=== PATIENT | female | born 1940 | race Caucasian/White ===

== ENCOUNTER 2016-04-04 14:43 | Emergency (ER) | payer OTHER ==
[~2016-04-04] VITALS: Ht 162.6 cm; Wt 52.2 kg
[~2016-04-04 14:43] MED LIST: ALEN70TA5 PO; ASPI-482 PO; ATEN50TA PO; ATOR40TA59 PO; CEPH-264 PO; ERGO500012 PO; GABA-585 PO; HYDR-2666 PO; HYDR-2819 PO; NAPR500T8 PO; POTA10TA10 PO; TRIA1CAP3 PO
[2016-04-04] MEDS ORDERED: ONDANSETRON ODT 4 MG TAB.RAPDIS PO ONE (16:00)
[2016-04-04] MEDS ORDERED: HYDROMORPHONE 2 MG/ML VIAL. IM ONE (16:00)
[2016-04-04] MEDS ORDERED: HYDR-2678 PO (17:21)
--- NOTE | 2016-04-04 17:21 | PHYS DOC ---
Past Medical History Past Medical History: Arthritis, High Cholesterol, Hypertension Additional Past Medical Histor: prolapsed uterus, alzheimers, chronic back pain Past Surgical History: Other Additional Past Surgical Histo: lumbar spinal surgery Alcohol Use: None Drug Use: None Adult General Chief Complaint Chief Complaint: HIP PAIN HPI HPI Patient is a 75 year old female who presents here today secondary to pain to her hips. Patient reports that she has chronic pain. Patient reports that she takes oxycodone but she ran out. Patient denies any trauma or falls. Patient denies any fevers shaking chills nausea vomiting diarrhea dysuria frequency urgency chest pain shortness of breath or abdominal pain. Patient does have a history of hypertension. Patient denies any diabetes liver kidney or lung problems. Patient has had no prior surgeries. Patient does not smoke drink or do drugs. Patient reports that she has chronic pain to her hips which he normally takes medicines for but she hasn't had any. Patient reports she does not have an appointment coming up with her primary care physician that she will try to make one for this week. The patient's exam in the ED was significant for tenderness to palpation to both hips. Patient has full range of motion. There is no deformity. The remainder of the patient's exam was unremarkable. Patient was given a shot of Dilaudid IM in the ED with significant improvement in her pain. Upon reevaluation the patient reports that she feels much improved. Patient will be discharged home with pain medicines was instructed to follow-up with her primary care physician for assistance with her discomfort. Review of Systems Review of Systems Constitutional: Denies fever or chills [] Eyes: Denies change in visual acuity, redness, or eye pain [] All other review of systems are negative except as documented in the history of present illness portion. Current Medications Current Medications Current Medications Medications (Trade) Dose Ordered Sig/Ren Start Time Stop Time Status Last Admin Dose Admin Hydromorphone HCl (Dilaudid) 0.5 mg 1X ONCE 04/04/16 16:00 04/04/16 16:01 DC 04/04/16 16:12 0.5 MG Ondansetron HCl (Zofran Odt) 4 mg 1X ONCE 04/04/16 16:00 04/04/16 16:01 DC 04/04/16 16:12 4 MG Allergies Allergies Allergies Coded Allergies Type Severity Reaction Last Updated Verified No Known Drug Allergies 09/17/14 No Physical Exam Physical Exam Constitutional: Well developed, well nourished, no acute distress, non-toxic appearance. [] HENT: Normocephalic, atraumatic, bilateral external ears normal, Eyes: PERRLA, EOMI, Neck: Normal range of motion, no tenderness, Cardiovascular:Heart rate regular rhythm Lungs & Thorax: Bilateral breath sounds clear to auscultation [] Abdomen: Bowel sounds normal, soft, no tenderness, no masses, no pulsatile masses. [] Skin: Warm, dry, no erythema, no rash. [] Back: No tenderness, no CVA tenderness. [] Extremities: See above. Neurologic: Alert and oriented X 3, normal motor function, Psychologic: Affect normal, judgement normal, mood normal. [] Current Patient Data Vital Signs Vital Signs Date Time Temp Pulse Resp B/P Pulse Ox O2 Delivery O2 Flow Rate FiO2 04/04/16 18:45 84 20 133/80 96 Room Air 04/04/16 16:15 97.6 97.6 EKG EKG [] Radiology/Procedures Radiology/Procedures [] Course & Med Decision Making Course & Med Decision Making Pertinent Labs and Imaging studies reviewed. (See chart for details) [] Dragon Disclaimer Dragon Disclaimer This electronic medical record was generated, in whole or in part, using a voice recognition dictation system. Departure Departure Impression: Primary Impression: Hip pain Disposition: 01 HOME, SELF-CARE Condition: IMPROVED Referrals: LUZMA MELO MD (PCP) Patient Instructions: Arthralgia, [id number] Additional Instructions: Follow up with your doctor this week. Scripts Hydrocodone/Acetaminophen (Lortab 5-325 mg Tablet)1 Each Tablet1 Tab PO PRN Q6HRS PRN PAIN #20 TAB Prov:DANIEL LIMA MD 04/04/16 DANIEL LIMA MD Apr 04, 2016 17:21
[2016-04-04 18:45] VITALS: BP 133/80
== END 2016-04-04 19:04 | disposition home or self-care (01) ==
LOC: ER 15:26
DX: G89.29 Other chronic pain (principal); M25.551 Pain in right hip; M25.552 Pain in left hip; G30.9 Alzheimer's disease, unspecified; E78.00 Pure hypercholesterolemia, unspecified; F02.80 Dementia in other diseases classified elsewhere, unspecified severity, without behavioral disturbance, psychotic disturbance, mood disturbance, and anxiety; M19.90 Unspecified osteoarthritis, unspecified site; I10 Essential (primary) hypertension
CPT/HCPCS: 96372; 99283; J1170; Q0162

== ENCOUNTER 2016-04-05 11:55 | Emergency (ER) | payer OTHER ==
[~2016-04-05] VITALS: Ht 134.6 cm; Wt 47.6 kg
[~2016-04-05 11:55] MED LIST changes: +HYDR-2678 PO
--- NOTE | 2016-04-05 14:58 | RAD ---
Portable pelvis, 04/05/2016: History: Hip pain No fracture or destructive bony lesion is seen. There is mild narrowing of both hip joints with mild marginal spurring. Severe multilevel degenerative change is evident in the lower lumbar spine. IMPRESSION: 1. Mild degenerative change at both hip joints. 2. Severe degenerative changes in the lumbar spine.
[2016-04-05 15:44] LABS: BILIRUBIN,URINE NEGATIVE (NEG); GLUCOSE,URINE NEGATIVE (NEG); NITRITE,URINE NEGATIVE (NEG); PH,URINE 6.5; PROTEIN,URINE NEGATIVE (NEG-TRACE); UROBILINOGEN,URINE 0.2 mg/dL (0.2 mg/dL)
[2016-04-05] MEDS ORDERED: KETOROLAC TROMETHAMINE 60 MG/2 ML SYRINGE. IM ONE (15:45)
[2016-04-05 16:07] LABS: BACTERIA,URINE FEW /HPF (0-FEW); RBC,URINE 0 /HPF (0-2); SQUAMOUS EPITHELIAL CELL,UR FEW /LPF
--- NOTE | 2016-04-05 16:11 | PHYS DOC ---
Past Medical History Past Medical History: Arthritis, High Cholesterol, Hypertension Additional Past Medical Histor: prolapsed uterus, alzheimers, chronic back pain Past Surgical History: Other Additional Past Surgical Histo: lumbar spinal surgery Alcohol Use: None Drug Use: None Adult General Chief Complaint Chief Complaint: BACK PAIN - NO INJURY HPI HPI Patient is a 75 year old female who presents with sons for evaluation of acute on chronic back and hip pains. States has no pain at rest, but has significant pain with bending at hips or back or walking. Tried taking hydrocodone from yesterday ED visit, but is not controlling pain. Son also states she has 1 month of decreased urination and is concerned she has a UTI. She otherwise denies injury, fall, f/c, n/v, abd pain, dysuria, hematuria, constipation, diarrhea, numbness, tingling, weakness, bowel or bladder dysfunction, or saddle anesthesia. Review of Systems Review of Systems Constitutional: Denies fever or chills [] Eyes: Denies change in visual acuity, redness, or eye pain [] HENT: Denies nasal congestion or sore throat [] Respiratory: Denies cough or shortness of breath [] Cardiovascular: No additional information not addressed in HPI [] GI: Denies abdominal pain, nausea, vomiting, bloody stools or diarrhea [] : Denies dysuria or hematuria [] Musculoskeletal: Has back pain and joint pain [] Integument: Denies rash or skin lesions [] Neurologic: Denies headache, focal weakness or sensory changes [] Endocrine: Denies polyuria or polydipsia [] Current Medications Current Medications Current Medications Medications (Trade) Dose Ordered Sig/[facility] Start Time Stop Time Status Last Admin Dose Admin Ketorolac Tromethamine (Toradol Im) 15 mg 1X ONCE 04/05/16 15:45 04/05/16 15:48 DC 04/05/16 16:13 15 MG Allergies Allergies Allergies Coded Allergies Type Severity Reaction Last Updated Verified No Known Drug Allergies 09/17/14 No Physical Exam Physical Exam Constitutional: Well developed, well nourished, no acute distress, non-toxic appearance. [] HENT: Normocephalic, atraumatic, bilateral external ears normal, oropharynx moist, nose normal. [] Eyes: PERRLA, EOMI. [] Neck: Normal range of motion, supple. [] Cardiovascular:Heart rate regular rhythm [] Lungs & Thorax: Bilateral breath sounds clear to auscultation [] Abdomen: Bowel sounds normal, soft, no tenderness. [] Skin: Warm, dry, no erythema, no rash. [] Back: No midline spinal tenderness, no CVA tenderness. No visual or palpable abnormality. Has mild tenderness to bilateral lumbar paraspinal areas [] Extremities: Lower extremities with no obvious deformity or discoloration, no tenderness, maintains full ROM of hips/knees/ankles/toes, has pain with bilateral hip ROM, normal strength, sensation intact to light touch, equal dp pulses [] Neurologic: Alert and oriented to self and situation, normal motor function, normal sensory function, no focal deficits noted. [] Psychologic: Affect normal, judgement normal, mood normal. [] Current Patient Data Vital Signs Vital Signs Date Time Temp Pulse Resp B/P Pulse Ox O2 Delivery O2 Flow Rate FiO2 04/05/16 16:35 92 20 129/87 96 Room Air 04/05/16 13:23 97.0 97.0 Lab Values Laboratory Tests Test 04/05/16 13:05 Urine Collection Type Unknown Urine Color Yellow Urine Clarity Clear Urine pH 6.5 Urine Specific [place] 1.020 Urine Protein Negativemg/dL (NEG-TRACE) Urine Glucose (UA) Negativemg/dL (NEG) Urine Ketones (Stick) Negativemg/dL (NEG) Urine Blood Negative (NEG) Urine Nitrite Negative (NEG) Urine Bilirubin Negative (NEG) Urine Urobilinogen Dipstick 0.2mg/dL (0.2 mg/dL) Urine Leukocyte Esterase Small (NEG) Urine RBC 0/HPF (0-2) Urine WBC 1-4/HPF (0-4) Urine Squamous Epithelial Cells Few/LPF Urine Bacteria Few/HPF (0-FEW) Urine Hyaline Casts Few/HPF Urine Mucus Mod/LPF Radiology/Procedures Radiology/Procedures XR pelvis IMPRESSION: 1. Mild degenerative change at both hip joints. 2. Severe degenerative changes in the lumbar spine. DICTATED and SIGNED BY: LEXY MORRIS MD DATE: 04/05/16 9643 Course & Med Decision Making Course & Med Decision Making Pertinent Labs and Imaging studies reviewed. (See chart for details) Urine without significant evidence of infection so will await cultures. XR as above. While in ED, she has few large bowel movements and began to feel better. Discussed results with patient and family and they are comfortable going home. Encouraged close follow up with PCP. Return precautions given. They understand and agree with plan. Dragon Disclaimer Dragon Disclaimer This electronic medical record was generated, in whole or in part, using a voice recognition dictation system. Departure Departure Impression: Primary Impression: Acute exacerbation of chronic low back pain Disposition: HOME, SELF-CARE Condition: STABLE Referrals: LUZMA MELO MD (PCP) Patient Instructions: Back Pain, Adult, [id number] Additional Instructions: Follow-up with your primary care doctor for further pain management. Return for any concerns. Kerri CLIFFORD MD Apr 05, 2016 16:11
[2016-04-05 16:35] VITALS: BP 129/87
== END 2016-04-05 16:45 | disposition home or self-care (01) ==
LOC: ER 11:55
DX: G89.29 Other chronic pain (principal); M54.5 Low back pain; E78.00 Pure hypercholesterolemia, unspecified; I10 Essential (primary) hypertension; M19.90 Unspecified osteoarthritis, unspecified site
CPT/HCPCS: 72170; 81001; 96372; 99285; J1885; 87086

== ENCOUNTER → 2016-04-12 | Outpatient (CLI) | payer MEDICARE, OTHER ==
[2016-04-05 16:35] VITALS: BP 129/87
--- NOTE | 2016-04-12 09:43 | RAD ---
Exam performed: Pelvic sonogram. History: Pelvic pain. Date of service: 04/12/16. Comparison: None available Technique: Transabdominal. Findings: The uterus and ovaries are not seen and are surgically absent as per the given history. No pelvic mass is identified. No free fluid. Impression: 1. Nonvisualized uterus and ovaries, Status post total hysterectomy. 2. Otherwise unremarkable exam
--- NOTE | 2016-04-12 12:17 | RAD ---
PROCEDURE MRI lumbar spine without contrast. HISTORY Chronic low back pain with bilateral leg radiculopathy, previous lumbar surgery TECHNIQUE Sagittal and axial T1 and T2 and sagittal STIR images were acquired of the lumbar spine. Contrast: None COMPARISON None FINDINGS There is fluid within the L3-4 and L2-3 intervertebral disc spaces. There is inferior height loss of L2 and superiorly of L3, also generalized height loss greater superiorly of L4. There are also large Schmorl's nodes at L3-4. There is advanced narrowing of the L2-3 through L5-S1 intervertebral disc spaces. There is grade 1 anterior spondylolisthesis at L2-3, minimal posterior subluxation L4 relative to L5, negligible posterior subluxation L3 relative to L4. There is reversal of the lordotic curvature centered about L3. There is amorphous edema of the L4 and L3 vertebral bodies and also minimally inferiorly of L2. Conus terminates normally T12-L1. There is mild to moderate levoscoliosis centered about L2. Not fully included, there is septated cyst of the left pelvis, may arise from the adnexa up to at least 3 centimeters in size. T12-L1: Spinal canal and neural foramina are adequate. L1-2: There is mild to moderate buckling of the ligamentum flavum. Neural foramina are adequate. There is very mild posterior narrowing of the far right lateral recess. L2-3: There is partial uncovering of the posterior aspect of the disc due to spondylolisthesis with superimposed broad bulge/protrusion. There is right laminectomy defect. There is facet hypertrophic change. There is fairly severe right and moderate to severe left neural foramina compromise. There is moderate left and mild right lateral recess stenosis, mild narrowing of the central canal. L3-4: There is a broad posterior disc osteophyte complex relatively greater in the left lateral recess, possible superimposed shallow bulge/protrusion. There are laminectomy defects. There is moderate left lateral recess stenosis. There is moderate left and moderate to severe right neural foramina compromise. L4-5: There is left laminectomy defect. There is broad posterior disc osteophyte complex, superimposed on the posteriorly subluxed L4 vertebral body margin. There is mild left lateral recess stenosis. There is moderate to severe left and moderate right neural foramina compromise. L5-S1: There is left laminectomy defect. There is mild buckling of the ligamentum flavum on the right. There is fairly severe narrowing of the left neural foramen greater distally with contact exiting left L5 nerve root by disc osteophyte complex. There is minimal narrowing of the right neural foramen. IMPRESSION 1. There is advanced narrowing of the L2-3 through L5-S1 intervertebral disc spaces. There is intradiscal fluid at L3-4 and L2-3, also some amorphous edema of the vertebral bodies at L2, L3, L4 with variable height loss of these vertebral bodies. Although sequela of infectious spondylitis is possible, findings are more likely to be more chronic assuming no clinical suspicion for acute infection, no significant paraspinous edema. There are no previous exams at this facility for comparison. 2. There have been multilevel laminectomies L2-3 to L5-S1 as stated. There is some variable lateral recess stenosis as stated greatest on the left at L3-L4 and left greater than right at L2-3. 3. There is multilevel lumbar neural foramina compromise as stated including more significant narrowing on the left at L5-S1, left greater than right at L4-5, right greater than left at L3-4, and bilaterally at L2-3. 4. There is lumbar levoscoliosis. There is mild abnormal AP alignment as stated. 5. Not fully included, there is likely septated cyst of the left pelvis which may arise from the adnexa, better evaluated with ultrasound. Electronically signed by: Jay Andrews MD (Apr 12, 2016 12:15:55)
== END | disposition home or self-care (01) ==
LOC: US 07:02
PROVIDERS: ATTEND Physician Assistant Medical
DX: M54.16 Radiculopathy, lumbar region (principal); G89.29 Other chronic pain; R19.00 Intra-abdominal and pelvic swelling, mass and lump, unspecified site
CPT/HCPCS: 72148; 76856

== ENCOUNTER → 2016-09-06 | Outpatient (CLI) | payer MEDICARE, OTHER ==
[~2016-09-06] MED LIST changes: -ERGO500012 PO; +ERGO500027 PO; -HYDR-2666 PO; +HYDR-2758 PO; -POTA10TA10 PO; +POTA10TA12 PO
[2016-09-06 11:49] LABS: BASO % 1 % (0-3); EOS % 1 % (0-3); HEMOGLOBIN 12.3 g/dL (12.0-15.5); LYMPH % 28 % (24-48); MEAN CORPUSCULAR HEMOGLOBIN 30 pg (25-35); MEAN CORPUSCULAR HGB CONC 33 g/dL (31-37); MEAN CORPUSCULAR VOLUME 91 fL (79-100); MONO % 8 % (0-9); NEUT % 63 % (31-73); PLATELET COUNT 220 x10^3/uL (140-400); RED BLOOD COUNT 4.08 x10^6/uL (3.50-5.40); RED CELL DISTRIBUTION WIDTH 13.7 % (11.5-14.5); WHITE BLOOD COUNT 7.3 x10^3/uL (4.0-11.0)
[2016-09-06 12:10] LABS: ALBUMIN/GLOBULIN RATIO 1.1 (1.0-1.7); CALCIUM 9.1 mg/dL (8.5-10.1); CREATININE 1.1 mg/dL (0.6-1.0); GFR 48.2; POTASSIUM 3.1 mmol/L (3.5-5.1); TOTAL BILIRUBIN 0.6 mg/dL (0.2-1.0); TOTAL PROTEIN 7.8 g/dL (6.4-8.2)
[2016-09-06 12:11] LABS: CHOLESTEROL/HDL RATIO 2.4
[2016-09-06 12:17] LABS: FREE T4 1.1 ng/dL (0.76-1.46)
== END | disposition home or self-care (01) ==
LOC: SPEC 11:36
DX: I10 Essential (primary) hypertension (principal); F41.1 Generalized anxiety disorder; M81.0 Age-related osteoporosis without current pathological fracture
CPT/HCPCS: 36415; 80053; 80061; 84439; 84443; 85027

== ENCOUNTER → 2016-09-12 | Outpatient (CLI) | payer MEDICARE, OTHER ==
--- NOTE | 2016-09-12 10:52 | KCIC ---
Bone mineral density study dated 09/12/2016. Indication: Osteoporosis. Findings: Lower lumbar spine: BMD (g/cm2): Total L1-L4.......... 1.386. . T-Score: Total L1-L4.................... 3.1. Z-Score: Total L1-L4 ................... 5.6. Left Hip: BMD (g/cm2): Total .......... 0.652. . T-Score: Total .................... -2.4. Z-Score: Total ................... -0.4. World Health Organization criteria for BMD interpretation classify patients as Normal (T-score at or above -1.0), Osteopenic (T-score between -1.0 and -2.5), or Osteoporotic (T-score at or below -2.5). Impression: 1. Bone mineral density values in the left femur correlate with osteopenia. 2. The values in the lower lumbar spine are within the range of normal but likely falsely elevated due to advanced degenerative change. Electronically signed by: Bin Andrade MD (09/12/2016 10:48 AM) [id number]
== END | disposition home or self-care (01) ==
LOC: KCIC DEXA 09:21
PROVIDERS: ATTEND Physician Assistant Medical
DX: M81.0 Age-related osteoporosis without current pathological fracture (principal); M85.88 Other specified disorders of bone density and structure, other site
CPT/HCPCS: 77080

== ENCOUNTER 2017-06-18 19:10 | Observation (INO) | payer OTHER, MEDICARE ==
[2017-06-18 19:28] LABS: ADD MAN DIFF? NO
[2017-06-18 19:31] LABS: BASO # 0.1 x10^3/uL (0.0-0.2); BASO % 1 % (0-3); EOS # 0.1 x10^3/uL (0.0-0.7); EOS % 1 % (0-3); HEMATOCRIT 34.4 % (36.0-47.0); HEMOGLOBIN 11.8 g/dL (12.0-15.5); LYMPH # 2.7 x10^3/uL (1.0-4.8); LYMPH % 35 % (24-48); MEAN CORPUSCULAR HEMOGLOBIN 31 pg (25-35); MEAN CORPUSCULAR HGB CONC 34 g/dL (31-37); MEAN CORPUSCULAR VOLUME 91 fL (79-100); MONO # 0.7 x10^3/uL (0.0-1.1); MONO % 10 % (0-9); NEUT # 4.3 x10^3uL (1.8-7.7); NEUT % 55 % (31-73); PLATELET COUNT 244 x10^3/uL (140-400); RED CELL DISTRIBUTION WIDTH 13.6 % (11.5-14.5); WHITE BLOOD COUNT 7.8 x10^3/uL (4.0-11.0)
[2017-06-18 19:41] LABS: INR 1.2 (0.8-1.1); PARTIAL THROMBOPLASTIN TIME 30 SEC (24-38); PROTHROMBIN TIME PATIENT 14.4 SEC (11.7-14.0)
[2017-06-18] MEDS: IV NORMAL SALINE 500ML BAG 500 ML IV (19:45)
[2017-06-18 19:54] LABS: ANION GAP 8 (6-14); BLOOD UREA NITROGEN 36 mg/dL (7-20); BUN/CREATININE RATIO 18 (6-20); CALCIUM 9.8 mg/dL (8.5-10.1); CARBON DIOXIDE 32 mmol/L (21-32); CHLORIDE 103 mmol/L (98-107); GFR 24.1; GLUCOSE 114 mg/dL (70-99); POTASSIUM 3.4 mmol/L (3.5-5.1); SODIUM 143 mmol/L (136-145)
[2017-06-18 19:59] LABS: ALBUMIN 3.4 g/dL (3.4-5.0); ALBUMIN/GLOBULIN RATIO 0.8 (1.0-1.7); ALK PHOS 98 U/L (46-116); ALT (SGPT) 27 U/L (14-59); AST (SGOT) 29 U/L (15-37); MAGNESIUM 1.8 mg/dL (1.8-2.4); TOTAL BILIRUBIN 0.3 mg/dL (0.2-1.0); TOTAL PROTEIN 7.7 g/dL (6.4-8.2)
[2017-06-18 20:03] LABS: TROPONINI < 0.017 ng/mL (0.000-0.055)
[2017-06-18 20:04] LABS: THYROID STIM HORMONE (TSH) 8.351 uIU/mL (0.358-3.74)
[2017-06-18 20:04] LABS: FREE T4 0.84 ng/dL (0.76-1.46)
[2017-06-18 20:34] LABS: BILIRUBIN,URINE NEGATIVE (NEG); CLARITY,URINE CLEAR; COLOR,URINE YELLOW; GLUCOSE,URINE NEGATIVE (NEG); NITRITE,URINE NEGATIVE (NEG); PROTEIN,URINE NEGATIVE (NEG-TRACE); UROBILINOGEN,URINE 0.2 mg/dL (0.2 mg/dL)
[2017-06-18 20:42] LABS: BACTERIA,URINE MANY /HPF (0-FEW); RBC,URINE OCC /HPF (0-2); SQUAMOUS EPITHELIAL CELL,UR FEW /LPF
[2017-06-18] MEDS: IV NORMAL SALINE 1000ML BAG 1,000 ML IV (20:50)
[2017-06-18] MEDS: ASPIRIN CHEWABLE 81 MG TABLET. PO (21:57)
[2017-06-19 05:03] LABS: ADD MAN DIFF? NO
[2017-06-19 05:12] LABS: BASO % 0 % (0-3); EOS # 0.1 x10^3/uL (0.0-0.7); EOS % 1 % (0-3); HEMATOCRIT 35.4 % (36.0-47.0); HEMOGLOBIN 12.1 g/dL (12.0-15.5); LYMPH # 3.3 x10^3/uL (1.0-4.8); LYMPH % 38 % (24-48); MEAN CORPUSCULAR HEMOGLOBIN 31 pg (25-35); MEAN CORPUSCULAR HGB CONC 34 g/dL (31-37); MEAN CORPUSCULAR VOLUME 90 fL (79-100); MONO # 0.6 x10^3/uL (0.0-1.1); MONO % 7 % (0-9); NEUT # 4.8 x10^3uL (1.8-7.7); NEUT % 54 % (31-73); PLATELET COUNT 211 x10^3/uL (140-400); RED BLOOD COUNT 3.93 x10^6/uL (3.50-5.40); RED CELL DISTRIBUTION WIDTH 13.7 % (11.5-14.5); WHITE BLOOD COUNT 8.8 x10^3/uL (4.0-11.0)
[2017-06-19 05:49] LABS: ANION GAP 9 (6-14); BLOOD UREA NITROGEN 29 mg/dL (7-20); CALCIUM 8.7 mg/dL (8.5-10.1); CARBON DIOXIDE 31 mmol/L (21-32); CHLORIDE 105 mmol/L (98-107); CREATININE 1.1 mg/dL (0.6-1.0); GLUCOSE 86 mg/dL (70-99); POTASSIUM 3.5 mmol/L (3.5-5.1); SODIUM 145 mmol/L (136-145)
[2017-06-19] MEDS: GABAPENTIN 300 MG CAPSULE. PO ×2 (09:17→21:10)
[2017-06-19] MEDS: amLODIPine BESYLATE 5 MG TABLET PO (09:17)
[2017-06-19] MEDS: SERTRALINE 50 MG TABLET. PO (09:17)
[2017-06-19] MEDS: POTASSIUM CL 20MEQ D5-0.45NACL 1,000 ML IV ×2 (09:18→17:18)
[2017-06-19] MEDS: ACETAMINOPHEN 500 MG TABLET PO (17:45)
[2017-06-19] MEDS ORDERED: INSULIN GLARGINE 300 UNITS/3 ML INSULN.PEN. SQ (21:00)
[2017-06-19] MEDS: LACTOBACILLUS RHAMNOSUS GG 1 CAPSULE. PO (21:11)
[2017-06-19] MEDS: cefTRIAXone IV Push 1 GM VIAL. IVP (22:42)
[2017-06-20] MEDS: POTASSIUM CL 20MEQ D5-0.45NACL 1,000 ML IV (03:49)
[2017-06-20 07:03] LABS: ANION GAP 7 (6-14); BLOOD UREA NITROGEN 17 mg/dL (7-20); CARBON DIOXIDE 30 mmol/L (21-32); CHLORIDE 106 mmol/L (98-107); CREATININE 0.9 mg/dL (0.6-1.0); GFR 60.6; GLUCOSE 106 mg/dL (70-99); POTASSIUM 3.3 mmol/L (3.5-5.1); SODIUM 143 mmol/L (136-145)
[2017-06-20] MEDS: SERTRALINE 50 MG TABLET. PO (08:40)
[2017-06-20] MEDS: amLODIPine BESYLATE 5 MG TABLET PO (08:40)
[2017-06-20] MEDS: GABAPENTIN 300 MG CAPSULE. PO (08:40)
[2017-06-20] MEDS: LACTOBACILLUS RHAMNOSUS GG 1 CAPSULE. PO (08:40)
== END 2017-06-20 09:47 | disposition home or self-care (01) ==
LOC: ER 19:10 → 5 SOUTH 21:20
DX: N17.9 Acute kidney failure, unspecified (principal); E86.0 Dehydration; N39.0 Urinary tract infection, site not specified; E03.9 Hypothyroidism, unspecified; E87.6 Hypokalemia
CPT/HCPCS: 36415; 51701; 70450; 71045; 80048; 80053; 81001; 83735; 84439; 84443; 84481; 84484; 85025; 85610; 85730; 93005; 96361; 96365; 96374; 96375; 97116-GP; 97162-GP; 99285-25; G0378; G0379; J0690; J0696; J1815; J7030; J7040

== ENCOUNTER 2017-06-27 13:00 | Emergency (ER) | payer OTHER ==
[2017-06-27 13:54] LABS: ADD MAN DIFF? NO
[2017-06-27 13:57] LABS: BASO % 1 % (0-3); EOS % 1 % (0-3); HEMATOCRIT 33.9 % (36.0-47.0); HEMOGLOBIN 11.6 g/dL (12.0-15.5); LYMPH # 1.9 x10^3/uL (1.0-4.8); LYMPH % 30 % (24-48); MEAN CORPUSCULAR HEMOGLOBIN 31 pg (25-35); MEAN CORPUSCULAR HGB CONC 34 g/dL (31-37); MEAN CORPUSCULAR VOLUME 90 fL (79-100); MONO # 0.5 x10^3/uL (0.0-1.1); MONO % 9 % (0-9); NEUT # 3.7 x10^3uL (1.8-7.7); NEUT % 60 % (31-73); PLATELET COUNT 224 x10^3/uL (140-400); RED BLOOD COUNT 3.77 x10^6/uL (3.50-5.40); RED CELL DISTRIBUTION WIDTH 13.7 % (11.5-14.5); WHITE BLOOD COUNT 6.3 x10^3/uL (4.0-11.0)
[2017-06-27 14:22] LABS: ANION GAP 4 (6-14); BLOOD UREA NITROGEN 23 mg/dL (7-20); CALCIUM 9.1 mg/dL (8.5-10.1); CARBON DIOXIDE 32 mmol/L (21-32); CHLORIDE 104 mmol/L (98-107); CREATININE 1.1 mg/dL (0.6-1.0); GLUCOSE 100 mg/dL (70-99); POTASSIUM 3.1 mmol/L (3.5-5.1); SODIUM 140 mmol/L (136-145)
[2017-06-27 14:42] LABS: TROPONINI < 0.017 ng/mL (0.000-0.055)
[2017-06-27 14:43] LABS: NT-PRO BNP 460 pg/mL (0-449); THYROID STIM HORMONE (TSH) 3.593 uIU/mL (0.358-3.74)
[2017-06-27 15:13] LABS: BILIRUBIN,URINE NEGATIVE (NEG); CLARITY,URINE CLEAR; COLOR,URINE YELLOW; GLUCOSE,URINE NEGATIVE (NEG); NITRITE,URINE NEGATIVE (NEG); PROTEIN,URINE NEGATIVE (NEG-TRACE); UROBILINOGEN,URINE 0.2 mg/dL (0.2 mg/dL)
[2017-06-27 15:48] LABS: BACTERIA,URINE MOD /HPF (0-FEW); HYALINE CASTS, URINE FEW /HPF; SQUAMOUS EPITHELIAL CELL,UR MANY /LPF; YEAST,URINE PRESENT /HPF
[2017-06-27] MEDS: IV NORMAL SALINE 500ML BAG 500 ML IV (15:51)
== END 2017-06-27 16:55 | disposition home or self-care (01) ==
LOC: ER 13:00
DX: R53.1 Weakness (principal); R42 Dizziness and giddiness; E86.0 Dehydration; E03.9 Hypothyroidism, unspecified; E78.00 Pure hypercholesterolemia, unspecified; F02.80 Dementia in other diseases classified elsewhere, unspecified severity, without behavioral disturbance, psychotic disturbance, mood disturbance, and anxiety; G30.9 Alzheimer's disease, unspecified; G89.29 Other chronic pain; I10 Essential (primary) hypertension; Z87.891 Personal history of nicotine dependence; Z90.710 Acquired absence of both cervix and uterus
CPT/HCPCS: 36415; 80048; 81001; 83880; 84443; 84484; 85025; 93005; 96361; 96365; 99285-25; J0690; J7040

== ENCOUNTER 2017-07-03 20:03 | Emergency (ER) | payer OTHER ==
[2017-07-03 21:06] LABS: ADD MAN DIFF? NO
[2017-07-03 21:09] LABS: BASO % 1 % (0-3); EOS # 0.1 x10^3/uL (0.0-0.7); EOS % 1 % (0-3); HEMATOCRIT 35.6 % (36.0-47.0); HEMOGLOBIN 12.3 g/dL (12.0-15.5); LYMPH # 2.3 x10^3/uL (1.0-4.8); LYMPH % 32 % (24-48); MEAN CORPUSCULAR HEMOGLOBIN 31 pg (25-35); MEAN CORPUSCULAR HGB CONC 35 g/dL (31-37); MEAN CORPUSCULAR VOLUME 90 fL (79-100); MONO # 0.5 x10^3/uL (0.0-1.1); MONO % 8 % (0-9); NEUT # 4.2 x10^3uL (1.8-7.7); NEUT % 59 % (31-73); PLATELET COUNT 249 x10^3/uL (140-400); RED BLOOD COUNT 3.97 x10^6/uL (3.50-5.40); RED CELL DISTRIBUTION WIDTH 13.6 % (11.5-14.5); WHITE BLOOD COUNT 7.2 x10^3/uL (4.0-11.0)
[2017-07-03] MEDS: IV NORMAL SALINE 500ML BAG 500 ML IV ×2 (21:20)
[2017-07-03 21:22] LABS: ALBUMIN 3.8 g/dL (3.4-5.0); ALBUMIN/GLOBULIN RATIO 0.9 (1.0-1.7); ALK PHOS 95 U/L (46-116); ALT (SGPT) 29 U/L (14-59); ANION GAP 8 (6-14); AST (SGOT) 32 U/L (15-37); BLOOD UREA NITROGEN 23 mg/dL (7-20); BUN/CREATININE RATIO 21 (6-20); CALCIUM 9.5 mg/dL (8.5-10.1); CARBON DIOXIDE 31 mmol/L (21-32); CHLORIDE 103 mmol/L (98-107); CREATININE 1.1 mg/dL (0.6-1.0); GLUCOSE 92 mg/dL (70-99); SODIUM 142 mmol/L (136-145); TOTAL BILIRUBIN 0.5 mg/dL (0.2-1.0)
[2017-07-03 21:36] LABS: POTASSIUM 2.8 mmol/L (3.5-5.1)
[2017-07-03] MEDS: POTASSIUM CHLORIDE 20 MEQ TABLET.ER. PO ×2 (21:53)
[2017-07-03 22:01] LABS: BILIRUBIN,URINE NEGATIVE (NEG); CLARITY,URINE CLEAR; COLOR,URINE YELLOW; GLUCOSE,URINE NEGATIVE (NEG); NITRITE,URINE NEGATIVE (NEG); PROTEIN,URINE NEGATIVE (NEG-TRACE); UROBILINOGEN,URINE 0.2 mg/dL (0.2 mg/dL)
[2017-07-03 22:13] LABS: AMORPHOUS SEDIMENT,UR PRESENT /HPF; BACTERIA,URINE FEW /HPF (0-FEW); RBC,URINE OCC /HPF (0-2); SQUAMOUS EPITHELIAL CELL,UR MOD /LPF; WBC,URINE 20-40 /HPF (0-4); YEAST,URINE PRESENT /HPF
[2017-07-03] MEDS: cloNIDine HCL 0.1 MG TABLET PO ×2 (22:50)
[2017-07-03] MEDS ORDERED: SMZ/TMP 800/160MG TABLET. PO ×2 (23:13)
[2017-07-03] MEDS: SMZ/TMP 800/160MG TABLET. PO ×2 (23:15)
== END 2017-07-03 23:19 | disposition home or self-care (01) ==
LOC: ER 20:03
DX: N39.0 Urinary tract infection, site not specified (principal); M79.672 Pain in left foot; M79.671 Pain in right foot; M19.90 Unspecified osteoarthritis, unspecified site; E78.00 Pure hypercholesterolemia, unspecified; E03.9 Hypothyroidism, unspecified; G89.29 Other chronic pain; I10 Essential (primary) hypertension; Z90.710 Acquired absence of both cervix and uterus
CPT/HCPCS: 36415; 80053; 81001; 85025; 87086; 99284; 99285; J7040

== ENCOUNTER 2017-11-01 14:21 | Inpatient (IN) | payer OTHER ==
[~2017-11-01] VITALS: Ht 157.5 cm; Wt 40.9 kg
[~2017-11-01 14:21] MED LIST changes: +AMLO5TAB7 PO; +HYDR-2815 PO; -HYDR-2819 PO; +LEVO25TA4 PO; +LEVO500T59 PO; +SERT50TA8 PO; +SULF1TAB24 PO
[2017-11-01 14:57] LABS: BASO % 0 % (0-3); EOS % 0 % (0-3); HEMATOCRIT 31.9 % (36.0-47.0); HEMOGLOBIN 11.1 g/dL (12.0-15.5); LYMPH # 1.3 x10^3/uL (1.0-4.8); LYMPH % 21 % (24-48); MEAN CORPUSCULAR HEMOGLOBIN 31 pg (25-35); MEAN CORPUSCULAR HGB CONC 35 g/dL (31-37); MEAN CORPUSCULAR VOLUME 88 fL (79-100); MONO # 0.6 x10^3/uL (0.0-1.1); MONO % 9 % (0-9); NEUT # 4.4 x10^3uL (1.8-7.7); NEUT % 69 % (31-73); PLATELET COUNT 206 x10^3/uL (140-400); RED BLOOD COUNT 3.64 x10^6/uL (3.50-5.40); RED CELL DISTRIBUTION WIDTH 13.9 % (11.5-14.5); WHITE BLOOD COUNT 6.3 x10^3/uL (4.0-11.0)
[2017-11-01 15:20] LABS: ALBUMIN 3.4 g/dL (3.4-5.0); CALCIUM 9.1 mg/dL (8.5-10.1); CREATININE 1.1 mg/dL (0.6-1.0); DIRECT BILIRUBIN 0.2 mg/dL (0.0-0.2); TOTAL BILIRUBIN 0.7 mg/dL (0.2-1.0); TOTAL PROTEIN 7.6 g/dL (6.4-8.2)
[2017-11-01 15:21] LABS: POTASSIUM 2.5 mmol/L (3.5-5.1)
[2017-11-01] MEDS ORDERED: IOHEXOL 300 MG/ML 100ML VIAL. IV ONE (15:30)
[2017-11-01] MEDS ORDERED: CONTRAST GIVEN. MC PRN (15:30)
[2017-11-01 15:39] LABS: BILIRUBIN,URINE NEGATIVE (NEG); CLARITY,URINE CLEAR; COLOR,URINE YELLOW; NITRITE,URINE NEGATIVE (NEG); PH,URINE 6.5; PROTEIN,URINE NEGATIVE (NEG-TRACE); UROBILINOGEN,URINE 0.2 mg/dL (0.2 mg/dL)
[2017-11-01 15:47] LABS: BACTERIA,URINE FEW /HPF (0-FEW); RBC,URINE 0 /HPF (0-2); SQUAMOUS EPITHELIAL CELL,UR FEW /LPF
--- NOTE | 2017-11-01 15:50 | EKG ---
[facility] [address] [place] [address] Test Date: 2017-11-01 Test Time: 15:11:45 Pat Name: ANDREZ CHAU Department: Room: Gender: F [employer]: : 1940 Requested By: YURIY MORENO Order Number: [id number] Reading MD: Jose Pérez Measurements Intervals [place] Rate: 88 P: 5 FL: 130 QRS: 47 QRSD: 84 T: 12 QT: 320 QTc: 390 Interpretive Statements SINUS RHYTHM LEFT ATRIAL ABNORMALITY AMPLITUDE CRITERIA FOR LVH ABNORMAL ECG Electronically Signed On 11-07-2017 10:14:24 CDT by Jose Pérez
--- NOTE | 2017-11-01 16:23 | RAD ---
CT of the abdomen and pelvis with contrast, 11/01/2017: History history: Abdominal and back pain Multidetector CT imaging was performed following an IV bolus injection of iodinated contrast material. No oral contrast material was administered for this study. Moderate coronary artery calcifications are present. No hepatic abnormality is seen. No definite gallstones are seen. There is no pericholecystic edema. The pancreatic head cannot be clearly from adjacent unopacified bowel. No pancreatic mass is seen. The spleen contains multiple calcified granulomata. There is bilateral renal cortical scarring. There is a probable small cyst laterally in the left kidney. The kidneys show no evidence of obstruction. There is moderate calcific plaquing of the abdominal aorta and its branches without evidence of aneurysm. The uterus is not visible and may be surgically absent. Small pelvic structures which probably represents ovaries are visible. There is a 2.6 cm cyst related to the presumed left ovary. This was also evident on the lumbar spine MR of 04/12/2016 and is probably unchanged. The bowel loops are not dilated. The appendix is visualized and is unremarkable. No free air or significant free fluid is evident in the abdomen or pelvis. There is a moderate rotatory thoracolumbar scoliosis with severe multilevel hypertrophic degenerative disc disease. There is extensive facet joint arthropathy at multiple levels. A moderate grade 1/2 anterolisthesis is present at L2-3. A similar appearance was present on the MR study of 04/12/2016. There has been multiple previous laminectomies. There is moderate ongoing central spinal stenosis at several levels. There is a mild to moderate vertebral compression deformity at T12. This is new when compared to the 04/12/2016 MR exam. IMPRESSION: 1. Moderate calcific plaquing of the aorta and its branches including the coronary arteries. 2. Unchanged left ovarian cyst. 3. No acute intra-abdominal or pelvic abnormality detected. 4. Severe multilevel degenerative change in the lumbar spine with chronic anterolisthesis at L2-3. 5. New T12 vertebral compression fracture. PQRS Compliance Statement: One or more of the following individualized dose reduction techniques were utilized for this examination: 1. Automated exposure control 2. Adjustment of the mA and/or kV according to patient size 3. Use of iterative reconstruction technique Electronically signed by: Flako Yun MD (11/01/2017 4:19 PM) [facility]
--- NOTE | 2017-11-01 16:43 | PHYS DOC ---
Past Medical History Past Medical History: Arthritis, Dementia, High Cholesterol, Hypertension, Hypothyroid Additional Past Medical Histor: prolapsed uterus, alzheimers, chronic back pain Past Surgical History: Hysterectomy, Other Additional Past Surgical Histo: lumbar spinal surgery Alcohol Use: None Drug Use: None Adult General Chief Complaint Chief Complaint: ABDOMINAL PAIN HPI HPI 77-year-old female presenting to the emergency department today with intermittent abdominal pain for 3 days intermittently. She denies nausea vomiting or diarrhea. She reports normal bowel movements. She describes the abdominal pain in the right and on the left lower side. It is 8 out of 10 nonradiating and sharp. She has a past surgical history of low back surgery and bladder sling procedure. She denies smoking drinking or IV drug use. She lives alone. She denies any allergies. She has a past medical history of high blood pressure high cholesterol neuropathy osteoporosis depression dementia and low thyroid. She denies any fevers chills nausea vomiting. She denies chest pain or shortness breath. Review of systems is negative for diarrhea constipation cough shortness of breath headache neck stiffness. All other review of systems is negative unless otherwise noted in history of present illness. ED course: 69-year-old female presenting with right and left lower quadrant abdominal pain. On arrival she is afebrile with a normal heart rate. She is well -appearing on examination. Abdomen is soft nondistended nontender palpation without rebound tenderness or guarding. Negative McBurney's point. Negative Simmons sign. Otherwise remainder the examination is unremarkable. EKG obtained and reviewed by myself shows sinus rhythm with a regular rate. ST segments congruent. Not suggestive of ACS. QRS is within normal limits. QTC is also within normal limits. Blood work sent along with CT abdomen pelvis. CT shows possibly new T12 compression fracture. Patient denies low back pain primarily abdominal pain. Potassium is significantly low. IV potassium ordered. Lactic acid within normal limits. UA shows possible UTI. We will give IV Rocephin. Patient will be admitted to . Basic bridge orders placed. Review of Systems Review of Systems SEE ABOVE. Current Medications Current Medications Current Medications Medications (Trade) Dose Ordered Sig/Ren Start Time Stop Time Status Last Admin Dose Admin Info (CONTRAST GIVEN -- Rx MONITORING) 1 each PRN DAILY PRN 11/01/17 15:30 11/03/17 15:29 Iohexol (Omnipaque 300 Mg/ml) 60 ml 1X ONCE 9/19/18 15:30 11/01/17 15:31 DC 11/01/17 15:39 60 ML Potassium Chloride/Water 100 ml @ 100 mls/hr Q1H 11/01/17 17:30 11/01/17 19:29 Allergies Allergies Allergies Coded Allergies Type Severity Reaction Last Updated Verified No Known Drug Allergies 09/17/14 No Physical Exam Physical Exam SEE ABOVE Constitutional: Well developed, well nourished, no acute distress, non-toxic appearance. [] HENT: Normocephalic, atraumatic, bilateral external ears normal, oropharynx moist, no oral exudates, nose normal. [] Eyes: PERRLA, EOMI, conjunctiva normal, no discharge. [] Neck: Normal range of motion, no tenderness, supple, no stridor. [] Cardiovascular:Heart rate regular rhythm, no murmur [] Lungs & Thorax: Bilateral breath sounds clear to auscultation [] Abdomen: Bowel sounds normal, soft, no tenderness, no masses, no pulsatile masses. [] Skin: Warm, dry, no erythema, no rash. [] Back: No tenderness, no CVA tenderness. [] Extremities: No tenderness, no cyanosis, no clubbing, ROM intact, no edema. [] Neurologic: Alert and oriented X 3, normal motor function, normal sensory function, no focal deficits noted. [] Psychologic: Affect normal, judgement normal, mood normal. [] Current Patient Data Vital Signs Vital Signs Date Time Temp Pulse Resp B/P (MAP) Pulse Ox O2 Delivery O2 Flow Rate FiO2 11/01/17 14:46 98.5 85 16 165/74 (104) 98 98.5 Lab Values Laboratory Tests Test 11/01/17 14:35 11/01/17 15:28 11/01/17 16:15 White Blood Count 6.3 x10^3/uL (4.0-11.0) Red Blood Count 3.64 x10^6/uL (3.50-5.40) Hemoglobin 11.1 g/dL (12.0-15.5) L Hematocrit 31.9 % (36.0-47.0) L Mean Corpuscular Volume 88 fL (79-100) Mean Corpuscular Hemoglobin 31 pg (25-35) Mean Corpuscular Hemoglobin Concent 35 g/dL (31-37) Red Cell Distribution Width 13.9 % (11.5-14.5) Platelet Count 206 x10^3/uL (140-400) Neutrophils (%) (Auto) 69 % (31-73) Lymphocytes (%) (Auto) 21 % (24-48) L Monocytes (%) (Auto) 9 % (0-9) Eosinophils (%) (Auto) 0 % (0-3) Basophils (%) (Auto) 0 % (0-3) Neutrophils # (Auto) 4.4 x10^3uL (1.8-7.7) Lymphocytes # (Auto) 1.3 x10^3/uL (1.0-4.8) Monocytes # (Auto) 0.6 x10^3/uL (0.0-1.1) Eosinophils # (Auto) 0.0 x10^3/uL (0.0-0.7) Basophils # (Auto) 0.0 x10^3/uL (0.0-0.2) Sodium Level 140 mmol/L (136-145) Potassium Level 2.5 mmol/L (3.5-5.1) *L Chloride Level 100 mmol/L (98-107) Carbon Dioxide Level 33 mmol/L (21-32) H Anion Gap 7 (6-14) Blood Urea Nitrogen 17 mg/dL (7-20) Creatinine 1.1 mg/dL (0.6-1.0) H Estimated GFR (Cockcroft-Gault) 48.0 Glucose Level 120 mg/dL (70-99) H Calcium Level 9.1 mg/dL (8.5-10.1) Total Bilirubin 0.7 mg/dL (0.2-1.0) Direct Bilirubin 0.2 mg/dL (0.0-0.2) Aspartate Amino Transferase (AST) 29 U/L (15-37) Alanine Aminotransferase (ALT) 21 U/L (14-59) Alkaline Phosphatase 103 U/L (46-116) Troponin I Quantitative < 0.017 ng/mL (0.000-0.055) IF-Gmv-A-Type Natriuretic Peptide 546 pg/mL (0-449) H Total Protein 7.6 g/dL (6.4-8.2) Albumin 3.4 g/dL (3.4-5.0) Lipase 87 U/L (73-393) Urine Collection Type Unknown Urine Color Yellow Urine Clarity Clear Urine pH 6.5 Urine Specific [place] 1.015 Urine Protein Negative mg/dL (NEG-TRACE) Urine Glucose (UA) Negative mg/dL (NEG) Urine Ketones (Stick) Negative mg/dL (NEG) Urine Blood Negative (NEG) Urine Nitrite Negative (NEG) Urine Bilirubin Negative (NEG) Urine Urobilinogen Dipstick 0.2 mg/dL (0.2 mg/dL) Urine Leukocyte Esterase Moderate (NEG) Urine RBC 0 /HPF (0-2) Urine WBC 1-4 /HPF (0-4) Urine Squamous Epithelial Cells Few /LPF Urine Bacteria Few /HPF (0-FEW) Urine Mucus Slight /LPF Lactic Acid Level 0.8 mmol/L (0.4-2.0) Laboratory Tests 11/01/17 14:35 Laboratory Tests 11/01/17 14:35 EKG EKG [] Radiology/Procedures Radiology/Procedures [] Course & Med Decision Making Course & Med Decision Making Pertinent Labs and Imaging studies reviewed. (See chart for details) [] Dragon Disclaimer Dragon Disclaimer This electronic medical record was generated, in whole or in part, using a voice recognition dictation system. Departure Departure Impression: Primary Impression: Abdominal pain Additional Impression: Hypokalemia Disposition: ADMITTED INPATIENT Condition: STABLE Referrals: LUZMA MELO MD (PCP) Problem Qualifiers YURIY MORENO MD Nov 01, 2017 16:43
[2017-11-01] MEDS: POTASSIUM CHLORIDE 10MEQ 100 ML IV SCH ×2 (17:52→19:07)
[2017-11-01] MEDS ORDERED: ONDANSETRON PF 4 MG/2 ML VIAL. IV PRN (18:15)
[2017-11-01] MEDS: IV NORMAL SALINE 1000ML BAG 1,000 ML IV SCH (19:35)
[2017-11-01] MEDS: MORPHINE SULFATE 2 MG/ML VIAL. IV PRN (19:36)
[2017-11-02 00:15] VITALS: BP 158/76
[2017-11-02 03:30] VITALS: BP 158/77
[2017-11-02 04:23] LABS: BASO % 1 % (0-3); EOS # 0.1 x10^3/uL (0.0-0.7); EOS % 1 % (0-3); HEMATOCRIT 34.1 % (36.0-47.0); HEMOGLOBIN 11.7 g/dL (12.0-15.5); LYMPH # 1.9 x10^3/uL (1.0-4.8); LYMPH % 25 % (24-48); MEAN CORPUSCULAR HEMOGLOBIN 30 pg (25-35); MEAN CORPUSCULAR HGB CONC 34 g/dL (31-37); MEAN CORPUSCULAR VOLUME 88 fL (79-100); MONO # 0.7 x10^3/uL (0.0-1.1); MONO % 9 % (0-9); NEUT # 4.9 x10^3uL (1.8-7.7); NEUT % 65 % (31-73); PLATELET COUNT 207 x10^3/uL (140-400); RED BLOOD COUNT 3.88 x10^6/uL (3.50-5.40); RED CELL DISTRIBUTION WIDTH 14.1 % (11.5-14.5); WHITE BLOOD COUNT 7.5 x10^3/uL (4.0-11.0)
[2017-11-02 05:02] LABS: CALCIUM 8.9 mg/dL (8.5-10.1); CREATININE 0.9 mg/dL (0.6-1.0); GFR 60.6
[2017-11-02 05:27] LABS: POTASSIUM 2.9 mmol/L (3.5-5.1)
[2017-11-02] MEDS ORDERED: POTASSIUM CHLORIDE 20 MEQ TABLET.ER. PO ONE (05:45)
[2017-11-02] MEDS: MORPHINE SULFATE 2 MG/ML VIAL. IV PRN (06:27)
[2017-11-02 07:00] VITALS: BP 120/68
--- NOTE | 2017-11-02 07:52 | PDOC1 ---
H & P H&P HPI: Ms. Calderon is a 77 yo female with HTN, HLD, anxiety, chronic back pain, osteoporosis, mild cognitive impairment, who presented to the ED yesterday for LLQ abdominal pain. Labs were remarkable only for potassium of 2.5. CT abdomen and pelvis was performed and was significant for a T12 compression fracture that is new from previous imaging as well as severe multilevel degenerative disc disease lumbar spine and moderate calcification of the aorta and the coronary arteries. She was admitted for potassium replacement. Potassium this morning was 2.9. She reports that her abdominal pain has resolved. CT Abd/pelvis IMPRESSION: 1. Moderate calcific plaquing of the aorta and its branches including the coronary arteries. 2. Unchanged left ovarian cyst. 3. No acute intra-abdominal or pelvic abnormality detected. 4. Severe multilevel degenerative change in the lumbar spine with chronic anterolisthesis at L2-3. 5. New T12 vertebral compression fracture. ROS: Constitutional: Denies fever, fatigue, chills HEENT: Denies sore throat, vision changes Cardio: Denies chest pain, dyspnea with exertion, syncope Pulmonary: Denies shortness of breath, cough, wheezing GI: Denies nausea, vomiting, diarrhea, constipation : Denies dysuria Neuro: Denies weakness, paresthesias PMH: as above Family Hx: Noncontributory Social Hx: Former smoker, quit at age 41. No significant alcohol use. Surg Hx: Back surgery in 2009 Meds: Reviewed and reconciled Allergies: Reviewed PE: Alert, oriented, no acute distress EOMI, sclera non-icteric Neck supple RRR, no murmur CTAB, no wheezes, crackles or rhonchi Soft, NT, ND, normal bowel sounds, no rebound. No edema, cyanosis. Normal capillary refill. Calm, cooperative, mood/affect within normal limits Assessment/Plan: Hypokalemia, improved T12 vertebral compression fracture, possibly new, but asymptomatic Hypertension Hyperlipidemia Chronic back pain Osteoporosis Mild cognitive impairment Pt is comfortable with plan to replace potassium PO at home after receiving another 40meq PO this morning. She will follow up in clinic next week for repeat BMP. She is not having symptoms from compression fracture and is already on bisphosphonates at home. All other medications with remain the same at home. FENG BARTLETT MD Nov 02, 2017 07:52
[2017-11-02] MEDS: IV NORMAL SALINE 1000ML BAG 1,000 ML IV SCH (08:20)
[2017-11-02] MEDS ORDERED: POTA20TA82 PO (08:45)
[2017-11-02] MEDS ORDERED: GABAPENTIN 300 MG CAPSULE. PO SCH (09:00)
[2017-11-02] MEDS ORDERED: SERTRALINE 50 MG TABLET. PO SCH (09:00)
[2017-11-02] MEDS ORDERED: LEVOTHYROXINE 25 MCG TABLET. PO SCH (09:00)
[2017-11-02] MEDS ORDERED: ASPIRIN ENTERIC COATED 81 MG TABLET.DR. PO SCH (09:00)
[2017-11-02] MEDS ORDERED: amLODIPine BESYLATE 5 MG TABLET PO SCH (09:00)
[2017-11-02 09:39] VITALS: BP 120/68
[2017-11-02] MEDS ORDERED: ATORVASTATIN CALCIUM 40 MG TABLET. PO SCH (21:00)
== END 2017-11-02 10:40 | disposition home or self-care (01) | DRG 641 ==
LOC: ER 14:21 → 5 SOUTH 17:45
PROVIDERS: ADMIT Family Medicine; ATTEND Family Medicine
DX: E87.6 Hypokalemia (principal); M48.54XA Collapsed vertebra, not elsewhere classified, thoracic region, initial encounter for fracture; E03.9 Hypothyroidism, unspecified; E78.00 Pure hypercholesterolemia, unspecified; E78.5 Hyperlipidemia, unspecified; F02.80 Dementia in other diseases classified elsewhere, unspecified severity, without behavioral disturbance, psychotic disturbance, mood disturbance, and anxiety; G30.9 Alzheimer's disease, unspecified; G89.29 Other chronic pain; I10 Essential (primary) hypertension; F32.9 Major depressive disorder, single episode, unspecified; G62.9 Polyneuropathy, unspecified; F41.9 Anxiety disorder, unspecified; M19.90 Unspecified osteoarthritis, unspecified site; M54.9 Dorsalgia, unspecified; M43.16 Spondylolisthesis, lumbar region; N83.202 Unspecified ovarian cyst, left side; Z90.710 Acquired absence of both cervix and uterus; M81.0 Age-related osteoporosis without current pathological fracture
CPT/HCPCS: 36415; 74177; 80048; 80076; 81001; 83605; 83690; 83880; 84484; 85025; 87086; 87641; 93005; 96365; 96366; 96375; J2270; J2405; J3480; J7030; Q9967; 99285-25

== ENCOUNTER 2017-12-03 16:04 | Emergency (ER) | payer OTHER ==
[~2017-12-03] VITALS: Ht 162.6 cm; Wt 43.5 kg
[~2017-12-03 16:04] MED LIST changes: +POTA20TA82 PO
--- NOTE | 2017-12-03 16:45 | PHYS DOC ---
Past Medical History Past Medical History: Hypertension, Hypothyroid Additional Past Medical Histor: prolapsed uterus, alzheimers, chronic back pain Past Surgical History: Hysterectomy, Other Additional Past Surgical Histo: lumbar spinal surgery Alcohol Use: None Drug Use: None Adult General Chief Complaint Chief Complaint: ABDOMINAL PAIN HPI HPI Patient is a 77 year old female who presents to the ER with complaints of lower abdominal pain. She denies any nausea, vomiting, diarrhea, constipation, dysuria, increased urinary frequency, or back pain. She states that her last bowel movement was yesterday and was normal. She currently rates her pain a 7 out of 10 on the pain scale. She denies any irregular vaginal discharge or vaginal bleeding. Review of Systems Review of Systems Constitutional: Denies fever or chills [] HENT: Denies nasal congestion or sore throat [] Respiratory: Denies cough or shortness of breath [] Cardiovascular: No additional information not addressed in HPI [] GI: Denies nausea, vomiting, bloody stools or diarrhea, reports lower abdominal pain [] : Denies increased urinary frequency, dysuria or hematuria [] Musculoskeletal: Denies back pain Integument: Denies rash or skin lesions [] Neurologic: Denies headache, focal weakness or sensory changes [] All other systems were reviewed and found to be within normal limits, except as documented in this note. Current Medications Current Medications Current Medications Medications (Trade) Dose Ordered Sig/Ren Start Time Stop Time Status Last Admin Dose Admin Ceftriaxone Sodium 50 ml @ 100 mls/hr 1X ONCE 12/03/17 19:00 12/03/17 19:29 DC 12/03/17 19:00 100 MLS/HR Fentanyl Citrate (Fentanyl 2ml Vial) 25 mcg 1X ONCE 12/03/17 17:00 12/03/17 17:01 DC Potassium Chloride (Klor-Con) 40 meq 1X ONCE 12/03/17 19:00 12/03/17 19:01 DC 12/03/17 19:20 40 MEQ Sodium Chloride 1,000 ml @ 1,000 mls/hr 1X ONCE 12/03/17 19:00 12/03/17 19:59 12/03/17 19:23 1,000 MLS/HR Allergies Allergies Allergies Coded Allergies Type Severity Reaction Last Updated Verified No Known Drug Allergies 09/17/14 No Physical Exam Physical Exam Constitutional: Well developed, well nourished, no acute distress, non-toxic appearance. [] HENT: Normocephalic, atraumatic, bilateral external ears normal, nose normal. [] Eyes: PERRLA, conjunctiva normal, no discharge. [] Cardiovascular:Heart rate regular rhythm, no murmur [] Lungs & Thorax: Bilateral breath sounds clear to auscultation [] Abdomen: Bowel sounds normal, soft, no masses, no pulsatile masses; suprapubic tenderness to palpation Skin: Warm, dry, no erythema, no rash. [] Extremities: No cyanosis, no clubbing, no edema. [] Neurologic: Alert and oriented X 3, normal motor function, normal sensory function, no focal deficits noted. [] P Current Patient Data Vital Signs Vital Signs Date Time Temp Pulse Resp B/P (MAP) Pulse Ox O2 Delivery O2 Flow Rate FiO2 12/03/17 16:04 98.3 95 8 118/57 (77) 99 Room Air 98.3 Lab Values Laboratory Tests Test 12/03/17 16:55 12/03/17 18:00 White Blood Count 7.4 x10^3/uL (4.0-11.0) Red Blood Count 3.46 x10^6/uL (3.50-5.40) L Hemoglobin 10.7 g/dL (12.0-15.5) L Hematocrit 30.5 % (36.0-47.0) L Mean Corpuscular Volume 88 fL (79-100) Mean Corpuscular Hemoglobin 31 pg (25-35) Mean Corpuscular Hemoglobin Concent 35 g/dL (31-37) Red Cell Distribution Width 14.4 % (11.5-14.5) Platelet Count 232 x10^3/uL (140-400) Neutrophils (%) (Auto) 65 % (31-73) Lymphocytes (%) (Auto) 25 % (24-48) Monocytes (%) (Auto) 10 % (0-9) H Eosinophils (%) (Auto) 0 % (0-3) Basophils (%) (Auto) 1 % (0-3) Neutrophils # (Auto) 4.8 x10^3uL (1.8-7.7) Lymphocytes # (Auto) 1.8 x10^3/uL (1.0-4.8) Monocytes # (Auto) 0.7 x10^3/uL (0.0-1.1) Eosinophils # (Auto) 0.0 x10^3/uL (0.0-0.7) Basophils # (Auto) 0.0 x10^3/uL (0.0-0.2) Sodium Level 138 mmol/L (136-145) Potassium Level 3.0 mmol/L (3.5-5.1) L Chloride Level 97 mmol/L (98-107) L Carbon Dioxide Level 33 mmol/L (21-32) H Anion Gap 8 (6-14) Blood Urea Nitrogen 31 mg/dL (7-20) H Creatinine 1.6 mg/dL (0.6-1.0) H Estimated GFR (Cockcroft-Gault) 31.2 BUN/Creatinine Ratio 19 (6-20) Glucose Level 143 mg/dL (70-99) H Calcium Level 9.8 mg/dL (8.5-10.1) Total Bilirubin 0.7 mg/dL (0.2-1.0) Aspartate Amino Transferase (AST) 28 U/L (15-37) Alanine Aminotransferase (ALT) 23 U/L (14-59) Alkaline Phosphatase 95 U/L (46-116) Total Protein 7.9 g/dL (6.4-8.2) Albumin 3.4 g/dL (3.4-5.0) Albumin/Globulin Ratio 0.8 (1.0-1.7) L Urine Collection Type U cath Urine Color Yellow Urine Clarity Cloudy Urine pH 6.0 Urine Specific [place] 1.020 Urine Protein 30 mg/dL (NEG-TRACE) Urine Glucose (UA) Negative mg/dL (NEG) Urine Ketones (Stick) Negative mg/dL (NEG) Urine Blood Negative (NEG) Urine Nitrite Negative (NEG) Urine Bilirubin Small (NEG) Urine Urobilinogen Dipstick 0.2 mg/dL (0.2 mg/dL) Urine Leukocyte Esterase Large (NEG) Urine RBC Rare /HPF (0-2) Urine WBC 20-40 /HPF (0-4) Urine Squamous Epithelial Cells Occ /LPF Urine Bacteria Many /HPF (0-FEW) Urine Mucus Slight /LPF Laboratory Tests 12/03/17 16:55 Laboratory Tests 12/03/17 16:55 EKG EKG [] Radiology/Procedures Radiology/Procedures [] Course & Med Decision Making Course & Med Decision Making Pertinent Labs and Imaging studies reviewed. (See chart for details) [] Dragon Disclaimer Dragon Disclaimer This electronic medical record was generated, in whole or in part, using a voice recognition dictation system. Departure Departure Impression: Primary Impression: UTI (urinary tract infection) Additional Impressions: Hypokalemia Dehydration Disposition: HOME, SELF-CARE Condition: STABLE Referrals: LUZMA MELO MD (PCP) Patient Instructions: Urinary Tract Infection, [id number] Additional Instructions: Fill prescription and use it as directed. Increase clear fluids. Take your potassium supplement as it is prescribed. Follow-up with your primary care doctor in 1-2 days. Return to the emergency room if her symptoms worsen. Scripts Cephalexin (KEFLEX) 500 Mg Capsule 1 CAP PO BID, #14 CAP 0 Refills Prov: FLORENTIN BARROS APRN 12/03/17 Problem Qualifiers Primary Impression: UTI (urinary tract infection) Urinary tract infection type: site unspecified Hematuria presence: without hematuria Qualified Codes: N39.0 - Urinary tract infection, site not specified FLORENTIN BARROS SEWING PATTERN LAYOUT TECHNICIAN Dec 03, 2017 16:45
[2017-12-03] MEDS ORDERED: IV NORMAL SALINE 500ML BAG 500 ML IV ONE (17:00)
[2017-12-03] MEDS ORDERED: fentaNYL PF VIAL 100 MCG/2 ML VIAL IV ONE (17:00)
[2017-12-03 17:16] LABS: BASO % 1 % (0-3); EOS % 0 % (0-3); HEMATOCRIT 30.5 % (36.0-47.0); HEMOGLOBIN 10.7 g/dL (12.0-15.5); LYMPH # 1.8 x10^3/uL (1.0-4.8); LYMPH % 25 % (24-48); MEAN CORPUSCULAR HEMOGLOBIN 31 pg (25-35); MEAN CORPUSCULAR HGB CONC 35 g/dL (31-37); MEAN CORPUSCULAR VOLUME 88 fL (79-100); MONO # 0.7 x10^3/uL (0.0-1.1); MONO % 10 % (0-9); NEUT # 4.8 x10^3uL (1.8-7.7); NEUT % 65 % (31-73); PLATELET COUNT 232 x10^3/uL (140-400); RED BLOOD COUNT 3.46 x10^6/uL (3.50-5.40); RED CELL DISTRIBUTION WIDTH 14.4 % (11.5-14.5); WHITE BLOOD COUNT 7.4 x10^3/uL (4.0-11.0)
[2017-12-03 17:33] LABS: ALBUMIN 3.4 g/dL (3.4-5.0); ALBUMIN/GLOBULIN RATIO 0.8 (1.0-1.7); CALCIUM 9.8 mg/dL (8.5-10.1); CREATININE 1.6 mg/dL (0.6-1.0); GFR 31.2; TOTAL BILIRUBIN 0.7 mg/dL (0.2-1.0); TOTAL PROTEIN 7.9 g/dL (6.4-8.2)
[2017-12-03 18:05] LABS: BILIRUBIN,URINE SMALL (NEG); CLARITY,URINE CLOUDY; COLOR,URINE YELLOW; NITRITE,URINE NEGATIVE (NEG); PROTEIN,URINE 30 mg/dL (NEG-TRACE); UROBILINOGEN,URINE 0.2 mg/dL (0.2 mg/dL)
[2017-12-03 18:19] LABS: RBC,URINE RARE /HPF (0-2)
[2017-12-03 18:20] LABS: BACTERIA,URINE MANY /HPF (0-FEW); SQUAMOUS EPITHELIAL CELL,UR OCC /LPF; WBC,URINE 20-40 /HPF (0-4)
[2017-12-03] MEDS ORDERED: POTASSIUM CHLORIDE 20 MEQ TABLET.ER. PO ONE (19:00)
[2017-12-03] MEDS ORDERED: IV NORMAL SALINE 1000ML BAG 1,000 ML IV ONE (19:00)
[2017-12-03 19:50] VITALS: BP 187/84
[2017-12-03] MEDS ORDERED: CEPH-264 PO (19:57)
== END 2017-12-03 20:40 | disposition home or self-care (01) ==
LOC: ER 16:04
DX: N39.0 Urinary tract infection, site not specified (principal); E86.0 Dehydration; E87.6 Hypokalemia; E03.9 Hypothyroidism, unspecified; I10 Essential (primary) hypertension; G89.29 Other chronic pain; G30.9 Alzheimer's disease, unspecified; F02.80 Dementia in other diseases classified elsewhere, unspecified severity, without behavioral disturbance, psychotic disturbance, mood disturbance, and anxiety; Z90.710 Acquired absence of both cervix and uterus; Z98.890 Other specified postprocedural states
CPT/HCPCS: 36415; 80053; 81001; 85025; 96365; 99284; J0690; J7030; 87086; 87186

== ENCOUNTER 2017-12-22 11:05 | Emergency (ER) | payer OTHER ==
[~2017-12-22] VITALS: Ht 157.5 cm; Wt 43.5 kg
--- NOTE | 2017-12-22 12:03 | RAD ---
Neck for soft tissues, 2 views, 12/22/2017: HISTORY: Choking episode, difficulty swallowing The epiglottis is normal in size and configuration. Cartilaginous calcifications are present in the laryngeal region. Some of the calcifications projected over the prevertebral region on the lateral view are probably due to calcified carotid bifurcation plaques. No focal prevertebral soft tissue swelling is seen. The bony structures are demineralized. There is fusion of the C4 and C5 vertebral bodies. There are moderate multilevel degenerative changes with mild anterolisthesis at C3-4, probably due to facet joint arthropathy. There is associated reversal of the normal cervical lordosis in the upper cervical region. IMPRESSION: 1. Moderate multilevel degenerative change in the cervical spine with reversal of the normal cervical lordosis. 2. No prevertebral mass or significant airway narrowing is evident. Electronically signed by: Flako Yun MD (12/22/2017 12:00 PM) [facility]
[2017-12-22 12:29] VITALS: BP 175/72
--- NOTE | 2017-12-22 12:31 | PHYS DOC ---
Past Medical History Past Medical History: Hypertension, Hypothyroid Additional Past Medical Histor: prolapsed uterus, alzheimers, chronic back pain Past Surgical History: Hysterectomy, Other Additional Past Surgical Histo: lumbar spinal surgery Alcohol Use: None Drug Use: None Adult General Chief Complaint Chief Complaint: DIFFICULTY SWALLOWING [facility] HPI Patient is a 77 year old female who presents with difficulty swallowing. The patient states that she had an episode while she was in her room where she thought she was choking. She had not been eating or drinking at the time. She went out to the nurse's station and requested water. She was able to drink freely but still felt scared from the episode. She requested to be brought to the emergency department for evaluation. She denies cough, chest pain or difficulty swallowing now. Review of Systems Review of Systems Constitutional: Denies fever or chills [] Eyes: Denies change in visual acuity, redness, or eye pain [] HENT: See history of present illness Respiratory: Denies cough or shortness of breath [] Cardiovascular: No additional information not addressed in HPI [] GI: Denies abdominal pain, nausea, vomiting, bloody stools or diarrhea [] : Denies dysuria or hematuria [] Musculoskeletal: Denies back pain or joint pain [] Integument: Denies rash or skin lesions [] Neurologic: Denies headache, focal weakness or sensory changes [] Endocrine: Denies polyuria or polydipsia [] All other systems were reviewed and found to be within normal limits, except as documented in this note. Allergies Allergies Allergies Coded Allergies Type Severity Reaction Last Updated Verified No Known Drug Allergies 09/17/14 No Physical Exam Physical Exam Constitutional: Well developed, well nourished, no acute distress, non-toxic appearance. [] HENT: Normocephalic, atraumatic, bilateral external ears normal, oropharynx moist, no oral exudates, nose normal. [] Eyes: PERRLA, EOMI, conjunctiva normal, no discharge. [] Neck: Normal range of motion, no tenderness, supple, no stridor. [] Cardiovascular:Heart rate regular rhythm, no murmur [] Lungs & Thorax: Bilateral breath sounds clear to auscultation [] Abdomen: Bowel sounds normal, soft, no tenderness, no masses, no pulsatile masses. [] Skin: Warm, dry, no erythema, no rash. [] Neurologic: Alert and oriented X 3, normal motor function, normal sensory function, no focal deficits noted. [] Psychologic: Affect normal, judgement normal, mood normal. [] Current Patient Data Vital Signs Vital Signs Date Time Temp Pulse Resp B/P (MAP) Pulse Ox O2 Delivery O2 Flow Rate FiO2 12/22/17 12:29 78 18 175/72 (106) 98 Room Air 12/22/17 11:05 99.1 99.1 EKG EKG [] Radiology/Procedures Radiology/Procedures []Signed PATIENT: ANDREZ CHAU ACCOUNT: [id number] : 1940 LOCATION: ER AGE: 77 SEX: F EXAM STATUS: PRE ER ORD. PHYSICIAN: RENATA MURRELL APRN REASON: choking episode this morning. PROCEDURE: NECK SOFT TISSUE Neck for soft tissues, 2 views, 12/22/2017: HISTORY: Choking episode, difficulty swallowing The epiglottis is normal in size and configuration. Cartilaginous calcifications are present in the laryngeal region. Some of the calcifications projected over the prevertebral region on the lateral view are probably due to calcified carotid bifurcation plaques. No focal prevertebral soft tissue swelling is seen. The bony structures are demineralized. There is fusion of the C4 and C5 vertebral bodies. There are moderate multilevel degenerative changes with mild anterolisthesis at C3-4, probably due to facet joint arthropathy. There is associated reversal of the normal cervical lordosis in the upper cervical region. IMPRESSION: 1. Moderate multilevel degenerative change in the cervical spine with reversal of the normal cervical lordosis. 2. No prevertebral mass or significant airway narrowing is evident. Electronically signed by: Flako Yun MD (12/22/2017 12:00 PM) [facility] DICTATED and SIGNED BY: FLAKO YUN MD DATE: 12/22/17 0007 Course & Med Decision Making Course & Med Decision Making Pertinent Labs and Imaging studies reviewed. (See chart for details) []The patient was able to swallow water with no difficulty in the emergency department. She will be transported back to her place of residence. Staff Physician Addendum: I was working in the ER during the course of this patient's visit. I was available for consultation as needed, but I was not directly involved in the care of this patient. Dragon Disclaimer Dragon Disclaimer This electronic medical record was generated, in whole or in part, using a voice recognition dictation system. Departure Departure Impression: Primary Impression: Choking episode Disposition: HOME, SELF-CARE Condition: STABLE Referrals: LUZMA MELO MD (PCP) Patient Instructions: Choking, Adult Additional Instructions: Resume your home medications. Follow-up with your etymology professor for future healthcare needs. If you feel like you're having another choking sensation follow-up with a GI specialist for a possible scope. If worsening return to the emergency department. RENATA MURRELL APRN Dec 22, 2017 12:31 JUAN HOYOS MD Dec 22, 2017 14:30
== END 2017-12-22 12:38 | disposition home or self-care (01) ==
LOC: ER 11:05
DX: R09.89 Other specified symptoms and signs involving the circulatory and respiratory systems (principal); R13.10 Dysphagia, unspecified; I10 Essential (primary) hypertension; E03.9 Hypothyroidism, unspecified; G89.29 Other chronic pain
CPT/HCPCS: 70360; 99284

== ENCOUNTER 2018-01-16 22:10 | Observation (INO) | payer OTHER ==
[~2018-01-16] VITALS: Ht 154.9 cm; Wt 43.5 kg
[~2018-01-16 22:10] MED LIST changes: -HYDR-2758 PO; +HYDR-2761 PO
--- NOTE | 2018-01-16 22:15 | PHYS DOC ---
Past Medical History Past Medical History: Hypertension, Hypothyroid Additional Past Medical Histor: prolapsed uterus, alzheimers, chronic back pain Past Surgical History: Hysterectomy, Other Additional Past Surgical Histo: lumbar spinal surgery Alcohol Use: None Drug Use: None Adult General Chief Complaint Chief Complaint: MECHANICAL FALL HPI HPI Patient is a 77 year old female who presents for weakness. Patient lives at home in an apartment by herself. She takes care of herself. Today, she was sitting on the edge of the bed when she slipped and slid down off the bed landing on the floor. She states she did not sustain any injury but she was too weak to get up from the floor. She was able to crawl to the front door to let EMS into her apartment. On arrival to the ER, she complains of left elbow pain and right knee pain. She does not have any other complaints other than having mild anxiety. She did not have chest pain or palpitations during the fall. She states she has been eating and drinking normally. No abdominal pain, nausea, vomiting. Denies urinary symptoms. Review of Systems Review of Systems Constitutional: Denies fever or chills Eyes: Denies change in visual acuity HENT: Denies nasal congestion or sore throat Respiratory: Denies cough or shortness of breath Cardiovascular: No additional information not addressed in HPI GI: Denies abdominal pain, nausea, vomiting, bloody stools or diarrhea : Denies dysuria or hematuria Musculoskeletal: as documented above Integument: Denies rash or skin lesions Neurologic: Denies headache, focal weakness or sensory changes Endocrine: Denies polyuria or polydipsia All other systems were reviewed and found to be within normal limits, except as documented in this note. Current Medications Current Medications Current Medications Medications (Trade) Dose Ordered Sig/Ren Start Time Stop Time Status Last Admin Dose Admin Lorazepam (Ativan) 0.25 mg 1X ONCE 01/16/18 23:00 01/16/18 23:02 DC 01/16/18 23:08 0.25 MG Sodium Chloride 1,000 ml @ 50 mls/hr Q20H 01/17/18 00:30 01/18/18 00:29 Allergies Allergies Allergies Coded Allergies Type Severity Reaction Last Updated Verified No Known Drug Allergies 09/17/14 No Physical Exam Physical Exam Constitutional: Well developed, well nourished, no acute distress, non-toxic appearance HENT: Normocephalic, atraumatic, bilateral external ears normal, oropharynx dry Eyes: PERRLA, EOMI, conjunctiva normal Neck: Normal range of motion, no tenderness, Cardiovascular:Heart rate regular rhythm, no murmur Lungs & Thorax: Bilateral breath sounds clear to auscultation Abdomen: Bowel sounds normal, soft, no tenderness Skin: Warm, dry, no erythema, no rash Back: No tenderness Extremities: No edema. Exam of left elbow and right knee are normal other than some mild pain symptoms with passive range of motion Neurologic: Alert and oriented X 3, normal motor function Psychologic: Affect normal Current Patient Data Vital Signs Vital Signs Date Time Temp Pulse Resp B/P (MAP) Pulse Ox O2 Delivery O2 Flow Rate FiO2 01/17/18 00:00 101 01/16/18 23:30 99 01/16/18 22:12 97.5 16 133/94 (107) Room Air 97.5 Lab Values Laboratory Tests Test 01/16/18 22:25 01/16/18 23:15 Urine Collection Type U cath Urine Color Yellow Urine Clarity Clear Urine pH 6.5 Urine Specific [place] 1.020 Urine Protein Negative mg/dL (NEG-TRACE) Urine Glucose (UA) Negative mg/dL (NEG) Urine Ketones (Stick) Negative mg/dL (NEG) Urine Blood Negative (NEG) Urine Nitrite Negative (NEG) Urine Bilirubin Negative (NEG) Urine Urobilinogen Dipstick 0.2 mg/dL (0.2 mg/dL) Urine Leukocyte Esterase Small (NEG) Urine RBC 3-5 /HPF (0-2) Urine WBC 5-10 /HPF (0-4) Urine Squamous Epithelial Cells Few /LPF Urine Bacteria 0 /HPF (0-FEW) White Blood Count 8.7 x10^3/uL (4.0-11.0) Red Blood Count 3.88 x10^6/uL (3.50-5.40) Hemoglobin 11.9 g/dL (12.0-15.5) L Hematocrit 34.6 % (36.0-47.0) L Mean Corpuscular Volume 89 fL (79-100) Mean Corpuscular Hemoglobin 31 pg (25-35) Mean Corpuscular Hemoglobin Concent 34 g/dL (31-37) Red Cell Distribution Width 14.3 % (11.5-14.5) Platelet Count 241 x10^3/uL (140-400) Neutrophils (%) (Auto) 64 % (31-73) Lymphocytes (%) (Auto) 27 % (24-48) Monocytes (%) (Auto) 9 % (0-9) Eosinophils (%) (Auto) 0 % (0-3) Basophils (%) (Auto) 1 % (0-3) Neutrophils # (Auto) 5.6 x10^3uL (1.8-7.7) Lymphocytes # (Auto) 2.3 x10^3/uL (1.0-4.8) Monocytes # (Auto) 0.7 x10^3/uL (0.0-1.1) Eosinophils # (Auto) 0.0 x10^3/uL (0.0-0.7) Basophils # (Auto) 0.1 x10^3/uL (0.0-0.2) Sodium Level 142 mmol/L (136-145) Potassium Level 3.3 mmol/L (3.5-5.1) L Chloride Level 101 mmol/L (98-107) Carbon Dioxide Level 30 mmol/L (21-32) Anion Gap 11 (6-14) Blood Urea Nitrogen 36 mg/dL (7-20) H Creatinine 1.2 mg/dL (0.6-1.0) H Estimated GFR (Cockcroft-Gault) 43.4 Glucose Level 104 mg/dL (70-99) H Calcium Level 10.5 mg/dL (8.5-10.1) H Troponin I Quantitative 0.029 ng/mL (0.000-0.055) Laboratory Tests 01/16/18 23:15 Laboratory Tests 01/16/18 23:15 EKG EKG No STEMI Interpretation Time: 00:01 Radiology/Procedures Radiology/Procedures Plain film imaging of the left elbow and right knee are negative for acute fractures per wet read Course & Med Decision Making Course & Med Decision Making Pertinent Labs and Imaging studies reviewed. (See chart for details) Patient was evaluated in the emergency department after sliding onto the floor of her apartment and being unable to get off of the floor. Her troponin was not elevated. The rest of her lab panel was unremarkable other than mildly elevated creatinine which was lower compared to the most recent results. Imaging of the right knee and left elbow were negative for acute fractures. Patient was given a gentle fluid bolus of 500 mL in the ER. She did feel improved after this. We attempted to ambulate the patient with a walker which is her baseline status but she remained 2 week to safely return home. The patient represents significant fall risk and lives at home alone. Plan is to admit the patient to the hospital. Orders are placed for additional IV fluids. Regular diet. Physical therapy consult tomorrow. Dragon Disclaimer Dragon Disclaimer This electronic medical record was generated, in whole or in part, using a voice recognition dictation system. Departure Departure Disposition: 09 ADMITTED INPATIENT Condition: GOOD Referrals: LUZMA MELO MD (PCP) ARIA GONZALEZ DO Jan 16, 2018 22:15
[2018-01-16 22:40] LABS: BILIRUBIN,URINE NEGATIVE (NEG); CLARITY,URINE CLEAR; COLOR,URINE YELLOW; NITRITE,URINE NEGATIVE (NEG); PH,URINE 6.5; PROTEIN,URINE NEGATIVE (NEG-TRACE); UROBILINOGEN,URINE 0.2 mg/dL (0.2 mg/dL)
[2018-01-16 22:50] LABS: BACTERIA,URINE 0 /HPF (0-FEW); SQUAMOUS EPITHELIAL CELL,UR FEW /LPF
[2018-01-16] MEDS ORDERED: IV NORMAL SALINE 500ML BAG 500 ML IV ONE (23:00)
[2018-01-16] MEDS ORDERED: LORazepam 1 MG TABLET PO ONE (23:00)
[2018-01-16 23:33] LABS: BASO # 0.1 x10^3/uL (0.0-0.2); BASO % 1 % (0-3); EOS % 0 % (0-3); HEMATOCRIT 34.6 % (36.0-47.0); HEMOGLOBIN 11.9 g/dL (12.0-15.5); LYMPH # 2.3 x10^3/uL (1.0-4.8); LYMPH % 27 % (24-48); MEAN CORPUSCULAR HEMOGLOBIN 31 pg (25-35); MEAN CORPUSCULAR HGB CONC 34 g/dL (31-37); MEAN CORPUSCULAR VOLUME 89 fL (79-100); MONO # 0.7 x10^3/uL (0.0-1.1); MONO % 9 % (0-9); NEUT # 5.6 x10^3uL (1.8-7.7); NEUT % 64 % (31-73); PLATELET COUNT 241 x10^3/uL (140-400); RED BLOOD COUNT 3.88 x10^6/uL (3.50-5.40); RED CELL DISTRIBUTION WIDTH 14.3 % (11.5-14.5); WHITE BLOOD COUNT 8.7 x10^3/uL (4.0-11.0)
[2018-01-16 23:41] LABS: CALCIUM 10.5 mg/dL (8.5-10.1); CREATININE 1.2 mg/dL (0.6-1.0); GFR 43.4; POTASSIUM 3.3 mmol/L (3.5-5.1)
[2018-01-17] MEDS: IV NORMAL SALINE 1000ML BAG 1,000 ML IV SCH ×2 (02:59→20:30)
[2018-01-17 03:32] VITALS: BP 157/86
[2018-01-17] MEDS ORDERED: GABA300C18 PO (04:39)
--- NOTE | 2018-01-17 06:12 | EKG ---
[facility] [address] [place] [address] Test Date: 2018-01-16 Test Time: 23:57:05 Pat Name: ANDREZ CHAU Department: Room: Gender: F [employer] Supervisor: : 1940 Requested By: ARIA GONZALEZ Order Number: [id number] Reading MD: Measurements Intervals [place] Rate: 106 P: 180 GA: 52 QRS: 51 QRSD: 202 T: -59 QT: 380 QTc: 507 Interpretive Statements SINUS TACHYCARDIA RIGHT BUNDLE BRANCH BLOCK ABNORMAL ECG RI6.01 Compared to ECG 11/01/2017 15:11:45 Right bundle-branch block now present Sinus rhythm no longer present Atrial abnormality no longer present Left ventricular hypertrophy no longer present
[2018-01-17 07:00] VITALS: BP 173/83
--- NOTE | 2018-01-17 08:38 | PDOC ---
Provider Note Provider Note [id number] LUZMA MELO MD Jan 17, 2018 08:38
[2018-01-17] MEDS: amLODIPine BESYLATE 5 MG TABLET PO SCH (08:49)
[2018-01-17] MEDS: POTASSIUM CL 20MEQ D5-0.45NACL 1,000 ML IV SCH ×2 (08:49→20:42)
[2018-01-17] MEDS: SERTRALINE 50 MG TABLET. PO SCH (08:49)
[2018-01-17] MEDS: GABAPENTIN 100 MG CAPSULE. PO SCH ×2 (08:49→20:43)
--- NOTE | 2018-01-17 09:14 | HP ---
ADMIT DATE: 01/17/2018 CHIEF COMPLAINT: Weakness. HISTORY OF PRESENT ILLNESS: Relatively healthy lady who was last in the hospital 2 months ago and family notices in the last day or two, became weak and was not eating particularly well. There has been no overt other symptoms of any kind including fever, nausea, vomiting, diarrhea or new medications. She was mildly dry in the ER and was given some IV fluids and felt better and was sleepy now. Laboratory study showed minimally reduced potassium of 3.3, otherwise unremarkable and the urine is clear as well. PAST HISTORY: MEDICATIONS: Noted in the old record. ALLERGIES: No allergies. No significant other surgical or medical problems. SOCIAL HISTORY: Lives alone, but has family in the area. She has a [employer]. Nonsmoker and nondrinker. FAMILY HISTORY: Unremarkable. REVIEW OF SYSTEMS: No other complaints. OBJECTIVE: ENT: Mucosa a little dry, otherwise all unremarkable. NECK: No masses, nodes or thyroid enlargement. LUNGS: Clear, no tachypnea. CARDIOVASCULAR: Regular rate. No irregular beat or murmur. ABDOMEN: Soft, benign and nontender. EXTREMITIES: Mildly decreased skin turgor, good pedal and radial pulses. No joint or skin lesions. NEUROLOGIC: Physiologic, nonfocal. GENITOURINARY AND RECTAL: Deferred. LABORATORY DATA: Laboratory studies showed a mildly elevated BUN. Otherwise, generally unremarkable. Urine was clear. X-rays of the knee and ankle were negative as well. ASSESSMENT: Some degree of dehydration with prerenal azotemia and secondary weakness. I see no sign of secondary infection or acute neurologic process at this time. PLAN: Discussed with son, IV fluids and observation and possibly discharge in the morning. LUZMA MELO MD DR: SANG/ban JOB#: [id number] / [id number]
[2018-01-17 11:00] VITALS: BP 151/78
[2018-01-17] MEDS: LEVOTHYROXINE 25 MCG TABLET. PO SCH (11:08)
[2018-01-17 15:00] VITALS: BP 148/72
--- NOTE | 2018-01-17 16:15 | RAD ---
Left elbow, 3 views, 01/16/2018: HISTORY: Fall, pain No acute fracture or dislocation is identified. There is no radiographic evidence of an elbow joint effusion. Mild subcutaneous edema is noted. IMPRESSION: No acute bony abnormality is detected. Right knee, 3 views, 01/16/2018: HISTORY: Fall, pain There is patchy bony demineralization. No fracture or dislocation is identified. No significant joint effusion is seen. IMPRESSION: No acute right knee abnormality is detected. Electronically signed by: Flako Yun MD (01/17/2018 4:11 PM) [facility]
[2018-01-17 19:00] VITALS: BP 149/65
[2018-01-17 23:00] VITALS: BP 126/65
[2018-01-18 03:00] VITALS: BP 154/61
[2018-01-18] MEDS: LEVOTHYROXINE 25 MCG TABLET. PO SCH (06:02)
[2018-01-18 07:00] VITALS: BP 149/87
[2018-01-18] MEDS: POTASSIUM CL 20MEQ D5-0.45NACL 1,000 ML IV SCH (08:03)
[2018-01-18] MEDS: GABAPENTIN 100 MG CAPSULE. PO SCH (08:24)
[2018-01-18] MEDS: amLODIPine BESYLATE 5 MG TABLET PO SCH (08:24)
[2018-01-18] MEDS: SERTRALINE 50 MG TABLET. PO SCH (08:24)
--- NOTE | 2018-01-18 08:27 | DISCH ---
DISCHARGE WITH HOME HEALTH DISCHARGE INFORMATION: Final Diagnosis: Problems Medical Problems: (1) Dehydration Status: Acute (2) General weakness Status: Acute Condition on Discharge: Stable CODE STATUS: Code Status: DNR/DNI HOME HEALTH: Face to Face: I certify this patient is under my care and that I, or a nurse practitioner or physician's litigation assistant working with me, had a face to face encounter that meets the physician face to face encounter requirements with this patient on []. Medical Complications: Falls Physical Therapy For: Evalulation/Treatment Home Health Aide For: Self-care POST DISCHARGE ORDERS: Activity Instructions for Disc: Activity as tolerated Weight Bearing Status after Di: As tolerated Bathing Instructions: No Tub Bath until see DrJanee CHECKS AFTER DISCHARGE: Checks after discharge: Check your Temp as needed FOLLOW-UP: Follow up with: as scheduled CERTIFICATION STATEMENT: Certification Statement: Certification Statement: Based on the above finding, I certify that this patient is confined to the home and needs intermittent alf care, physical therapy and/or speech therapy, or continues to need occupational therapy.~ This patient is under my care, and I have initiated the establishment of the plan of care.~ This patient will be followed by myself or a community physician who will periodically review the plan of care. Home Meds Active Scripts Cephalexin (KEFLEX) 500 Mg Capsule, 1 CAP PO BID, #14 CAP 0 Refills Prov:FLORENTIN BARROS APRN 12/03/17 Potassium Chloride (POTASSIUM CHLORIDE) 20 Meq Tablet.er, 20 MEQ PO DAILY for 5 Days, #5 TAB.SR 0 Refills Prov:FENG BARTLETT MD 11/02/17 Reported Medications Levothyroxine Sodium (LEVOTHYROXINE SODIUM) 25 Mcg Tablet, 25 MG PO DAILY 07/10/17 Sertraline Hcl (SERTRALINE HCL) 50 Mg Tablet, 50 MG PO DAILY for ANTI-DEPRESSANT , TAB 0 Refills 06/19/17 Amlodipine Besylate (AMLODIPINE BESYLATE) 5 Mg Tablet, 5 MG PO DAILY, TAB 06/19/17 Aspirin (ASPIR 81) 81 Mg Tablet.dr, 81 MG PO DAILY, TAB 09/12/14 Alendronate Sodium (ALENDRONATE SODIUM) 70 Mg Tablet, 1 TAB PO WEEKLY, #4 TAB 3 Refills 08/31/14 Gabapentin (GABAPENTIN ) 100 Mg Capsule, 300 MG PO BID, CAP 08/16/13 Atorvastatin Calcium (ATORVASTATIN CALCIUM) 40 Mg Tablet, 40 MG PO HS for FOR CHOLESTEROL, #30 TAB 0 Refills 08/16/13 LUZMA MELO MD Jan 18, 2018 08:27
--- NOTE | 2018-01-18 08:29 | PDOC ---
Provider Note Provider Note [id number] LUZMA MELO MD Jan 18, 2018 08:29
--- NOTE | 2018-01-18 08:38 | DS ---
DATE OF DISCHARGE: 01/18/2018 HOSPITAL SUMMARY: A 77-year-old female came in with generalized weakness without physical findings. X-rays of knee and hip are normal. BUN was elevated at 36, creatinine 1.3 and the rest of the studies were normal. She was given IV fluids. Her urine output picked up, and she felt much better and is eating and drinking and comfortable to be followed as an outpatient. FINAL DIAGNOSES: Weakness secondary to prerenal azotemia. OPERATIONS, PROCEDURES, COMPLICATIONS AND CONSULTATIONS: None. DISPOSITION: Continue home meds, remain the same. No new medications. Good fluid intake. Activity as tolerated. PROGNOSIS: Guarded. LUZMA MELO MD DR: SANG/ban JOB#: [id number] / [id number]
[2018-01-18 11:00] VITALS: BP 158/98
[2018-01-18 15:00] VITALS: BP 140/86
== END 2018-01-18 17:52 | disposition home health service (06) ==
LOC: ER 22:10 → 5 NORTH 01-17 00:30 → 5 SOUTH 01-17 19:08
PROVIDERS: ADMIT Family Medicine; ATTEND Family Medicine
DX: E86.0 Dehydration (principal); R79.89 Other specified abnormal findings of blood chemistry; R53.1 Weakness; I10 Essential (primary) hypertension; E03.9 Hypothyroidism, unspecified; F02.80 Dementia in other diseases classified elsewhere, unspecified severity, without behavioral disturbance, psychotic disturbance, mood disturbance, and anxiety; F41.9 Anxiety disorder, unspecified; G30.9 Alzheimer's disease, unspecified; Z90.710 Acquired absence of both cervix and uterus
CPT/HCPCS: 36415; 73080; 73562; 80048; 81001; 84484; 85025; 93005; 96360; 96361; 97162; 97166; 97530; 97535; 99284; G0378; G0379; G8978; G8979; G8987; G8988; G8989; J7030; J7040

== ENCOUNTER 2018-06-02 21:24 | Inpatient (IN) | payer OTHER ==
[~2018-06-02] VITALS: Ht 157.5 cm; Wt 39.0 kg
[~2018-06-02 21:24] MED LIST changes: -ALEN70TA5 PO; +ALEN70TA6 PO; +AMLO5TAB10 PO; -AMLO5TAB7 PO; +GABA300C18 PO
[2018-06-02 22:18] LABS: BASO % 0 % (0-3); EOS % 0 % (0-3); HEMATOCRIT 35.7 % (36.0-47.0); HEMOGLOBIN 11.9 g/dL (12.0-15.5); LYMPH # 1.8 x10^3/uL (1.0-4.8); LYMPH % 18 % (24-48); MEAN CORPUSCULAR HEMOGLOBIN 30 pg (25-35); MEAN CORPUSCULAR HGB CONC 34 g/dL (31-37); MEAN CORPUSCULAR VOLUME 88 fL (79-100); MONO # 0.6 x10^3/uL (0.0-1.1); MONO % 6 % (0-9); NEUT # 7.7 x10^3uL (1.8-7.7); NEUT % 76 % (31-73); PLATELET COUNT 227 x10^3/uL (140-400); RED BLOOD COUNT 4.06 x10^6/uL (3.50-5.40); RED CELL DISTRIBUTION WIDTH 13.5 % (11.5-14.5); WHITE BLOOD COUNT 10.2 x10^3/uL (4.0-11.0)
[2018-06-02 22:33] LABS: CREATININE 1.1 mg/dL (0.6-1.0); GFR 47.9
[2018-06-02 22:35] LABS: POTASSIUM 2.8 mmol/L (3.5-5.1)
[2018-06-02] MEDS ORDERED: IV NORMAL SALINE 1000ML BAG 1,000 ML IV ONE (22:45)
[2018-06-02] MEDS ORDERED: POTASSIUM CHLORIDE 20 MEQ TABLET.ER. PO ONE (22:45)
[2018-06-02 22:53] LABS: BILIRUBIN,URINE NEGATIVE (NEG); CLARITY,URINE CLOUDY; COLOR,URINE YELLOW; NITRITE,URINE NEGATIVE (NEG); PROTEIN,URINE 30 mg/dL (NEG-TRACE); UROBILINOGEN,URINE 0.2 mg/dL (0.2 mg/dL)
[2018-06-02 23:04] LABS: BACTERIA,URINE MANY /HPF (0-FEW); RBC,URINE OCC /HPF (0-2); SQUAMOUS EPITHELIAL CELL,UR MOD /LPF
--- NOTE | 2018-06-02 23:38 | PHYS DOC ---
Past Medical History Past Medical History: Dementia, High Cholesterol, Hypertension, Hypothyroid Additional Past Medical Histor: prolapsed uterus, alzheimers, chronic back pain Past Surgical History: Hysterectomy, Other Additional Past Surgical Histo: lumbar spinal surgery Alcohol Use: None Drug Use: None Adult General Chief Complaint Chief Complaint: WEAKNESS/GENERALIZED HPI HPI Patient is a 78 year old male with history of dementia, hypothyroidism who presents with complaints of fever, and increased anxiety. Patient lives by herself and contact her son earlier evening, states that she felt warm or hot. She appeared sounded short of breath over the phone and EMS was contacted. Patient states she normal feels better. History of recurrent urinary tract infections. Patient denies chest pain, shortness of breath, headache, urinary frequency urgency or burning. No other acute symptoms or concerns. History is limited due to dementia.[] Review of Systems Review of Systems Review symptoms as per history of present illness. All other systems were reviewed and found to be within normal limits, except as documented in this note. Current Medications Current Medications Current Medications Medications (Trade) Dose Ordered Sig/Ren Start Time Stop Time Status Last Admin Dose Admin Ceftriaxone Sodium (Rocephin) 1 gm 1X ONCE 06/02/18 23:45 06/02/18 23:46 Potassium Chloride (Klor-Con) 40 meq 1X ONCE 06/02/18 22:45 06/02/18 22:46 DC 06/02/18 23:02 40 MEQ Sodium Chloride 1,000 ml @ 1,000 mls/hr 1X ONCE 06/02/18 22:45 06/02/18 23:44 06/02/18 23:01 1,000 MLS/HR Allergies Allergies Allergies Coded Allergies Type Severity Reaction Last Updated Verified No Known Drug Allergies 09/17/14 No Physical Exam Physical Exam Constitutional: Well developed, well nourished, no acute distress, non-toxic appearance. [] HENT: Normocephalic, atraumatic, bilateral external ears normal, oropharynx moist, no oral exudates, nose normal. [] Eyes: PERRLA, EOMI, conjunctiva normal, no discharge. [] Neck: Normal range of motion, no tenderness, supple, no stridor. [] Cardiovascular:Heart rate regular rhythm, no murmur [] Lungs & Thorax: Bilateral breath sounds clear to auscultation [] Abdomen: Bowel sounds normal, soft, no tenderness. [] Skin: Warm, dry. [] Back: No tenderness, no CVA tenderness. [] Extremities: No tenderness, no cyanosis, no clubbing, ROM intact, no edema. [] Neurologic: Alert and oriented X to person, normal motor function, normal sensory function, no focal deficits noted. [] Psychologic: Affect normal, judgement normal, mood normal. [] Current Patient Data Lab Values Laboratory Tests Test 06/02/18 22:05 06/02/18 22:28 White Blood Count 10.2 x10^3/uL (4.0-11.0) Red Blood Count 4.06 x10^6/uL (3.50-5.40) Hemoglobin 11.9 g/dL (12.0-15.5) L Hematocrit 35.7 % (36.0-47.0) L Mean Corpuscular Volume 88 fL (79-100) Mean Corpuscular Hemoglobin 30 pg (25-35) Mean Corpuscular Hemoglobin Concent 34 g/dL (31-37) Red Cell Distribution Width 13.5 % (11.5-14.5) Platelet Count 227 x10^3/uL (140-400) Neutrophils (%) (Auto) 76 % (31-73) H Lymphocytes (%) (Auto) 18 % (24-48) L Monocytes (%) (Auto) 6 % (0-9) Eosinophils (%) (Auto) 0 % (0-3) Basophils (%) (Auto) 0 % (0-3) Neutrophils # (Auto) 7.7 x10^3uL (1.8-7.7) Lymphocytes # (Auto) 1.8 x10^3/uL (1.0-4.8) Monocytes # (Auto) 0.6 x10^3/uL (0.0-1.1) Eosinophils # (Auto) 0.0 x10^3/uL (0.0-0.7) Basophils # (Auto) 0.0 x10^3/uL (0.0-0.2) Sodium Level 139 mmol/L (136-145) Potassium Level 2.8 mmol/L (3.5-5.1) *L Chloride Level 97 mmol/L (98-107) L Carbon Dioxide Level 34 mmol/L (21-32) H Anion Gap 8 (6-14) Blood Urea Nitrogen 30 mg/dL (7-20) H Creatinine 1.1 mg/dL (0.6-1.0) H Estimated GFR (Cockcroft-Gault) 47.9 Glucose Level 116 mg/dL (70-99) H Calcium Level 10.0 mg/dL (8.5-10.1) Troponin I Quantitative 0.024 ng/mL (0.000-0.055) RI-Mmy-A-Type Natriuretic Peptide 864 pg/mL (0-449) H Urine Collection Type Unknown Urine Color Yellow Urine Clarity Cloudy Urine pH 7.0 Urine Specific [place] 1.015 Urine Protein 30 mg/dL (NEG-TRACE) Urine Glucose (UA) Negative mg/dL (NEG) Urine Ketones (Stick) Negative mg/dL (NEG) Urine Blood Negative (NEG) Urine Nitrite Negative (NEG) Urine Bilirubin Negative (NEG) Urine Urobilinogen Dipstick 0.2 mg/dL (0.2 mg/dL) Urine Leukocyte Esterase Large (NEG) Urine RBC Occ /HPF (0-2) Urine WBC 11-20 /HPF (0-4) Urine Squamous Epithelial Cells Mod /LPF Urine Bacteria Many /HPF (0-FEW) Urine Mucus Slight /LPF Laboratory Tests 06/02/18 22:05 Laboratory Tests 06/02/18 22:05 EKG EKG [EKG: Reviewed] Radiology/Procedures Radiology/Procedures [Chest x-ray: No acute cardiopulmonary disease. Course & Med Decision Making Course & Med Decision Making Pertinent Labs and Imaging studies reviewed. (See chart for details) [IVF, abx given, potassium replaced. Vital signs stable. Dr. Moran to admit. ] Dragon Disclaimer Dragon Disclaimer This electronic medical record was generated, in whole or in part, using a voice recognition dictation system. Departure Departure Impression: Primary Impression: UTI (urinary tract infection) Additional Impression: Hypokalemia Disposition: ADMITTED INPATIENT Admitting Physician: Tuan Moran Condition: STABLE Referrals: TUAN MORAN MD (PCP) Problem Qualifiers JUDE LYONS DO Jun 02, 2018 23:38
[2018-06-02] MEDS ORDERED: cefTRIAXone IV Push 1 GM VIAL. IVP ONE (23:45)
[2018-06-03] MEDS ORDERED: POTASSIUM CL 40MEQ IN 0.9%NACL 1,000 ML IV ONE
[2018-06-03 02:50] VITALS: BP 183/76
[2018-06-03] MEDS ORDERED: POTA10TA12 PO (03:43)
[2018-06-03] MEDS ORDERED: ALPRAZolam 0.25 MG TABLET PO PRN (03:45)
[2018-06-03] MEDS ORDERED: ALPRAZolam 0.25 MG TABLET PO ONE (03:45)
[2018-06-03] MEDS: traMADol 50 MG TABLET PO PRN ×2 (03:46→21:25)
[2018-06-03 05:30] LABS: BASO % 0 % (0-3); EOS % 0 % (0-3); HEMATOCRIT 33.5 % (36.0-47.0); HEMOGLOBIN 11.4 g/dL (12.0-15.5); LYMPH % 22 % (24-48); MEAN CORPUSCULAR HEMOGLOBIN 30 pg (25-35); MEAN CORPUSCULAR HGB CONC 34 g/dL (31-37); MEAN CORPUSCULAR VOLUME 89 fL (79-100); MONO # 0.7 x10^3/uL (0.0-1.1); MONO % 7 % (0-9); NEUT # 6.6 x10^3uL (1.8-7.7); NEUT % 70 % (31-73); PLATELET COUNT 215 x10^3/uL (140-400); RED BLOOD COUNT 3.77 x10^6/uL (3.50-5.40); RED CELL DISTRIBUTION WIDTH 13.3 % (11.5-14.5); WHITE BLOOD COUNT 9.4 x10^3/uL (4.0-11.0)
[2018-06-03 05:35] LABS: CALCIUM 9.3 mg/dL (8.5-10.1); CREATININE 0.9 mg/dL (0.6-1.0); GFR 60.4; POTASSIUM 3.3 mmol/L (3.5-5.1)
[2018-06-03] MEDS: LEVOTHYROXINE 25 MCG TABLET. PO SCH (06:19)
[2018-06-03 07:00] VITALS: BP 154/66
--- NOTE | 2018-06-03 07:06 | NUR ---
Pt admitted during the noc with sons at bedside. Pt with complaints of chronic back pain and restless during the noc. Received ok orders during the noc for pt's symptoms. Pt placed on purewick during the noc since pt with frequency of urine and not wanting to get up to use bsc. No further complaints at this time.
[2018-06-03] MEDS ORDERED: POTASSIUM CHLORIDE 20 MEQ TABLET.ER. PO SCH (08:00)
--- NOTE | 2018-06-03 08:42 | RAD ---
CHEST AP ONLY Clinical History: SOA Technique: AP view of the chest was obtained at 06/02/2018 10:00 PM. Comparison: July 09, 2017. Findings: The cardiomediastinal silhouette is normal. The pulmonary vasculature is normal. The lungs and pleural margins are clear. Impression: No evidence of an acute cardiopulmonary process. Electronically signed by: Mamadou Matias III, MD (06/03/2018 8:39 AM) [facility]
[2018-06-03] MEDS: SERTRALINE 50 MG TABLET. PO SCH (09:11)
[2018-06-03] MEDS: GABAPENTIN 100 MG CAPSULE. PO SCH ×2 (09:11→21:25)
[2018-06-03] MEDS: amLODIPine BESYLATE 5 MG TABLET PO SCH (09:12)
[2018-06-03] MEDS: POTASSIUM CHLORIDE 10 MEQ TABLET.ER. PO SCH ×2 (09:12→17:59)
[2018-06-03 11:00] VITALS: BP 126/51
--- NOTE | 2018-06-03 12:30 | EKG ---
[facility] [address] [place] [address] Test Date: 2018-06-02 Test Time: 21:48:19 Pat Name: ANDREZ CHAU Department: Room: [facility] 1 Gender: F [employer] Developer: : 1940 Requested By: JUDE LYONS Order Number: [id number] Reading MD: Issa Fang MD Measurements Intervals [place] Rate: 98 P: 61 VA: 92 QRS: 63 QRSD: 152 T: 39 QT: 380 QTc: 487 Interpretive Statements SINUS RHYTHM CONSIDER LVH NON-SPECIFIC ST/T CHANGES Electronically Signed On 06-08-2018 14:46:36 CDT by Issa Fang MD
[2018-06-03] MEDS: IV 1/2 NORMAL SALINE 1,000 ML IV SCH (13:10)
[2018-06-03] MEDS ORDERED: POTASSIUM CHLORIDE 20 MEQ TABLET.ER. PO ONE (13:30)
--- NOTE | 2018-06-03 14:25 | HP ---
ADMIT DATE: 06/02/2018 CHIEF COMPLAINT AND HISTORY OF PRESENT ILLNESS: This 78-year-old female, patient of Dr. Luzma Moran's was brought to the Emergency Room by her son after complaining of feeling hot, short of breath and dizzy. She was found to have a urinary tract infection and somewhat encephalopathic and was admitted for the same. PAST MEDICAL HISTORY: The patient's past medical history is remarkable for dementia, which by her 2 sons description during history is mild with her just asking questions that she has already asked before, but is highly functional living by herself, etc. She also has hyperlipidemia, hypertension, hypothyroidism, history of a prolapsed uterus, chronic back pain. She has had a prior lumbar spine surgery as well as hysterectomy. MEDICATIONS: Meds are brought with the patient, listed on the computer, have been addressed. ALLERGIES: She has no known drug allergies. SOCIAL HISTORY: Noncontributory. FAMILY HISTORY: Noncontributory. REVIEW OF SYSTEMS: Remarkable for denying complaints; however, she is sleepy throughout the exam and does not offer much history and most of that is obtained from the sons. PHYSICAL EXAMINATION: GENERAL: She is a well-developed and well-nourished female, in no acute distress. VITAL SIGNS: Stable. She is afebrile. HEAD, EYES, EARS, NOSE AND THROAT: Unremarkable. NECK: Supple without adenopathy or thyromegaly. CHEST: Clear to auscultation and percussion. HEART: Regular rate and rhythm without S3, S4, or murmur. ABDOMEN: Soft, nontender without hepatosplenomegaly or masses. EXTREMITIES: Without cyanosis, clubbing, edema. NEUROLOGIC: Remarkable for the sleepiness. There are no focal deficits present on exam. LABORATORY DATA: Laboratory does show evidence of urinary tract infection with 11-20 white cells and large leukocyte esterase. Potassium was low at 2.8 on admission, is up to 3.3 this morning and replacement will be ongoing for the same. White count is normal at 10,200 with somewhat of a left shift on admission and a hemoglobin of 11.9. IMPRESSION: 1. Encephalopathy secondary to urinary tract infection. 2. Hypokalemia. 3. Dementia, mild. 4. Hypothyroidism. 5. Hypertension. PLAN: Continue Rocephin 1 gram daily while urine cultures are pending and otherwise potassium replacement and supportive care. LESLI HAYWOOD MD DR: BRITTANEY/ban JOB#: [id number] / [id number] LUZMA Simmons MD
[2018-06-03 15:00] VITALS: BP 119/44
[2018-06-03 19:55] VITALS: BP 172/58
[2018-06-03] MEDS: ATORVASTATIN CALCIUM 40 MG TABLET. PO SCH (21:24)
[2018-06-03] MEDS: cefTRIAXone IV Push 1 GM VIAL. IVP SCH (21:25)
[2018-06-03 23:07] VITALS: BP 158/65
[2018-06-04 03:30] VITALS: BP 154/76
[2018-06-04] MEDS: IV 1/2 NORMAL SALINE 1,000 ML IV SCH (05:54)
[2018-06-04] MEDS: LEVOTHYROXINE 25 MCG TABLET. PO SCH (05:54)
[2018-06-04 07:39] VITALS: BP 124/67
--- NOTE | 2018-06-04 08:40 | PDOC ---
Provider Note Provider Note no temp, vss- urine cult pending, no tenmp- bmp better, cont rocephin- d/w son, likely dc 06/03 when cult done LUZMA MELO MD Jun 04, 2018 08:40
[2018-06-04] MEDS: GABAPENTIN 100 MG CAPSULE. PO SCH ×2 (09:14→20:52)
[2018-06-04] MEDS: amLODIPine BESYLATE 5 MG TABLET PO SCH (09:14)
[2018-06-04] MEDS: SERTRALINE 50 MG TABLET. PO SCH (09:14)
[2018-06-04] MEDS: POTASSIUM CHLORIDE 10 MEQ TABLET.ER. PO SCH ×2 (09:14→17:40)
--- NOTE | 2018-06-04 09:26 | NUR ---
SW following for discharge planning. Discussed with RN, pt came from home and no needs indicated at this time.
[2018-06-04] MEDS: POTASSIUM CL 20MEQ D5-0.45NACL 1,000 ML IV SCH ×2 (09:28→21:02)
[2018-06-04 09:33] LABS: CALCIUM 9.6 mg/dL (8.5-10.1); CREATININE 0.8 mg/dL (0.6-1.0); GFR 69.2; POTASSIUM 3.5 mmol/L (3.5-5.1)
[2018-06-04 10:40] VITALS: BP 134/61
[2018-06-04 14:21] VITALS: BP 120/57
[2018-06-04 19:30] VITALS: BP 171/67
[2018-06-04] MEDS: traMADol 50 MG TABLET PO PRN (20:51)
[2018-06-04] MEDS: cefTRIAXone IV Push 1 GM VIAL. IVP SCH (20:52)
[2018-06-04] MEDS: ATORVASTATIN CALCIUM 40 MG TABLET. PO SCH (20:52)
[2018-06-04 23:00] VITALS: BP 144/62
[2018-06-05 03:00] VITALS: BP 140/57
[2018-06-05] MEDS: LEVOTHYROXINE 25 MCG TABLET. PO SCH (06:08)
[2018-06-05 06:55] VITALS: BP 180/79
[2018-06-05] MEDS: POTASSIUM CHLORIDE 10 MEQ TABLET.ER. PO SCH ×2 (07:28→17:14)
--- NOTE | 2018-06-05 08:04 | PDOC ---
Provider Note Provider Note [id number] LUZMA MELO MD Jun 05, 2018 08:04
[2018-06-05] MEDS: amLODIPine BESYLATE 5 MG TABLET PO SCH (09:09)
[2018-06-05] MEDS: SERTRALINE 50 MG TABLET. PO SCH (09:09)
[2018-06-05] MEDS: GABAPENTIN 100 MG CAPSULE. PO SCH ×2 (09:10→21:48)
--- NOTE | 2018-06-05 09:28 | DS ---
DATE OF DISCHARGE: 06/05/2018 HOSPITAL SUMMARY: A 78-year-old female, who was admitted with weakness and fatigue and mild confusion. Urine showed white blood cells and many bacteria suspicious for urinary tract infection, but urine culture grew only mixed urogenital jonathan. Potassium was low at 2.8 on admission with a BUN elevated at 30. Potassium came up with replacement to 3.2 and the BUN down to 19, creatinine 0.8. CBC showed unremarkable. She remained afebrile throughout the hospital course, responded to oral and IV potassium replacement and is comfortable to be followed as an outpatient at this point. She received Rocephin IV for 2 doses, but this will be discontinued as there is no evidence of infection persisting. FINAL DIAGNOSES: 1. Acute hypokalemia, etiology undetermined. 2. Sterile pyuria. OPERATIONS, PROCEDURES, COMPLICATIONS AND CONSULTATIONS: None. DISPOSITION: Continue potassium replacement at home, stop low dose aspirin and any diuretic therapy that is not listed on the chart. ACTIVITY: As tolerated. PROGNOSIS: Guarded. She remains a DNR patient. LUZMA MELO MD DR: SANG/ban JOB#: [id number] / [id number]
[2018-06-05 10:51] VITALS: BP 134/72
--- NOTE | 2018-06-05 11:00 | NUR ---
Called and spoke with medical staff to leave a message for Dr. Moran that patient did not pass the PT test to ambulate; therefore, please advise about earlier discharge order. PT advised against discharge.
--- NOTE | 2018-06-05 11:52 | NUR ---
MO following pt. SW notified pt is having difficulty ambulating and is not safe to return home. Chart reviewed and DW RN. Pt was seen by PT/OT this morning and did not do well ambulating. OT recommends SNU. Spoke with pt and pt's son, daughter in law in room about SNU and options. They are agreeable with [facility] and are aware insurance auth is needed for SNU. SW phoned and faxed referral to [facility]. Pt acceptance and admission pending. MO requested Bisi to submit for auth if they accept pt. Awaiting on PT notes in the EMR. Will continue to follow.
--- NOTE | 2018-06-05 13:26 | NUR ---
Called and left message for Dr. Moran: please advise on continued need for telemetry or if patient can be discontinued from telemetry and transferred to med/surg unit 5th floor.
--- NOTE | 2018-06-05 13:55 | NUR ---
SW following pt. Pt has been accepted at [facility]. Awaiting on insurance auth for SNU. Discussed with Troy TRACY about eval/tx notes.
[2018-06-05 14:48] VITALS: BP 132/77
--- NOTE | 2018-06-05 14:53 | NUR ---
PT notes faxed to [facility]. Awaiting on Insurance auth for SNU.
--- NOTE | 2018-06-05 15:24 | NUR ---
SW following pt. Insurance has approved SNU. RN has paged Physician for dc orders. SW will await for dc orders/SNU orders and proceed accordingly.
--- NOTE | 2018-06-05 16:25 | NUR ---
Spoke with Bisi at [facility] as there is still no order at this time. She stated they will take pt in the morning once orders are done. KELL HALE.
[2018-06-05] MEDS: traMADol 50 MG TABLET PO PRN (19:18)
[2018-06-05 19:59] VITALS: BP 159/72
[2018-06-05] MEDS: ATORVASTATIN CALCIUM 40 MG TABLET. PO SCH (21:48)
[2018-06-05 23:58] VITALS: BP 176/82
[2018-06-06 03:29] VITALS: BP 123/49
[2018-06-06] MEDS: traMADol 50 MG TABLET PO PRN (06:12)
[2018-06-06] MEDS: LEVOTHYROXINE 25 MCG TABLET. PO SCH (06:12)
[2018-06-06 07:15] VITALS: BP 155/74
--- NOTE | 2018-06-06 08:16 | PDOC ---
Provider Note Provider Note home dc declined re weakness- to [facility] now LUZMA MELO MD Jun 06, 2018 08:16
[2018-06-06] MEDS: POTASSIUM CHLORIDE 10 MEQ TABLET.ER. PO SCH (09:51)
[2018-06-06] MEDS: SERTRALINE 50 MG TABLET. PO SCH (09:51)
[2018-06-06] MEDS: amLODIPine BESYLATE 5 MG TABLET PO SCH (09:51)
[2018-06-06] MEDS: GABAPENTIN 100 MG CAPSULE. PO SCH (09:51)
--- NOTE | 2018-06-06 10:00 | NUR ---
Spoke with patient son, Ramiro, at the bedside with patient about DNR form. Son stated his mother signs her own forms. Patient is alert and oriented x4 and answers all questions appropriately therefore patient signed DNR form.
[2018-06-06 11:20] VITALS: BP 150/70
--- NOTE | 2018-06-06 11:55 | NUR ---
SW following pt. Bisi from [facility] stated she will accept Paper Med rec as dc instructions were not completed in EMR (Physician notified). Orders faxed to [facility] and packet on chart. Pt will transport via facility arranged w/c van transport at 1500. Pt's choice and rights forms signed by pt and copies placed on chart. Pt's son, in room and agreeable with dc plans. KELL HALE.
--- NOTE | 2018-06-06 15:30 | NUR ---
Discharge Note: ANDREZ CHAU [address] [place] [address] Discharge instructions and discharge home medications reviewed with Other ALEXIA Lopez at [facility] and a copy given. All questions have been answered and understanding verbalized. Discontinued lines and drains: Peripheral IV intact. [facility].
== END 2018-06-06 15:30 | DRG 689 ==
LOC: ER 21:24 → 6 SOUTH 23:30
PROVIDERS: ADMIT Family Medicine; ATTEND Family Medicine
DX: N39.0 Urinary tract infection, site not specified (principal); N17.0 Acute kidney failure with tubular necrosis; G93.41 Metabolic encephalopathy; E87.6 Hypokalemia; I10 Essential (primary) hypertension; E03.9 Hypothyroidism, unspecified; E78.00 Pure hypercholesterolemia, unspecified; G30.9 Alzheimer's disease, unspecified; F02.80 Dementia in other diseases classified elsewhere, unspecified severity, without behavioral disturbance, psychotic disturbance, mood disturbance, and anxiety; G89.29 Other chronic pain; Z90.710 Acquired absence of both cervix and uterus; F41.9 Anxiety disorder, unspecified; Z87.440 Personal history of urinary (tract) infections; E78.5 Hyperlipidemia, unspecified
CPT/HCPCS: 36415; 71045; 80048; 81001; 83880; 84132; 84484; 85025; 87086; 93005; 96361; 96365; 96375; J0696; J3480; J7030; 97530; 99285-25

== ENCOUNTER 2018-08-01 16:00 | Inpatient (IN) | payer OTHER, MEDICAID ==
[~2018-08-01] VITALS: Ht 162.6 cm; Wt 39.9 kg
[2018-08-01] MEDS ORDERED: DEXAMETHASONE SOD PHOS 20 MG/5 ML VIAL. IV ONE (17:00)
--- NOTE | 2018-08-01 17:22 | PHYS DOC ---
Past Medical History Past Medical History: Dementia, High Cholesterol, Hypertension, Hypothyroid Additional Past Medical Histor: prolapsed uterus, alzheimers, chronic back pain Past Surgical History: Hysterectomy, Other Additional Past Surgical Histo: lumbar spinal surgery Alcohol Use: None Drug Use: None Adult General Chief Complaint Chief Complaint: WEAKNESS/GENERALIZED HPI HPI Patient is a frail 78-year-old female with a history of dementia who presents with left leg numbness and some low back pain. She states she's had the back pain for some time but today she's just felt like her left leg wouldn't work. She states she fell earlier today and had a difficult time getting up. She does state that and ordinarily walk around. She states she did not hurt her back from a fall she thinks the pain was spontaneous and the weakness in her leg is causing her to fall.[] Review of Systems Review of Systems Review of systems is unobtainable secondary to underlying dementia Current Medications Current Medications Current Medications Medications (Trade) Dose Ordered Sig/Ren Start Time Stop Time Status Last Admin Dose Admin Dexamethasone Sodium Phosphate (Decadron) 10 mg 1X ONCE 08/01/18 17:00 08/01/18 17:01 DC 08/01/18 17:16 10 MG Allergies Allergies Allergies Coded Allergies Type Severity Reaction Last Updated Verified No Known Drug Allergies 09/17/14 No Physical Exam Physical Exam Constitutional: Well developed, well nourished, no acute distress, non-toxic appearance. [] HENT: Normocephalic, atraumatic, bilateral external ears normal, oropharynx moist, no oral exudates, nose normal. [] Eyes: PERRLA, EOMI, conjunctiva normal, no discharge. [] Neck: Normal range of motion, no tenderness, supple, no stridor. [] Cardiovascular:Heart rate regular rhythm, no murmur [] Lungs & Thorax: Bilateral breath sounds clear to auscultation [] Abdomen: Bowel sounds normal, soft, no tenderness, no masses, no pulsatile masses. [] Skin: Warm, dry, no erythema, no rash. [] Back: No tenderness, no CVA tenderness. [] Extremities: No tenderness, no cyanosis, no clubbing, ROM intact, no edema. [] Neurologic: Decreased sensation left leg positive straight leg raise at approximately 20[] Psychologic: Blunted affect. [] Current Patient Data Vital Signs Vital Signs Date Time Temp Pulse Resp B/P (MAP) Pulse Ox O2 Delivery O2 Flow Rate FiO2 08/01/18 17:33 80 16 99 08/01/18 16:20 97.9 198/86 (123) Room Air 97.9 Lab Values Laboratory Tests Test 08/01/18 17:30 White Blood Count 7.3 x10^3/uL (4.0-11.0) Red Blood Count 3.94 x10^6/uL (3.50-5.40) Hemoglobin 11.8 g/dL (12.0-15.5) L Hematocrit 35.7 % (36.0-47.0) L Mean Corpuscular Volume 90 fL (79-100) Mean Corpuscular Hemoglobin 30 pg (25-35) Mean Corpuscular Hemoglobin Concent 33 g/dL (31-37) Red Cell Distribution Width 14.4 % (11.5-14.5) Platelet Count 259 x10^3/uL (140-400) Neutrophils (%) (Auto) 69 % (31-73) Lymphocytes (%) (Auto) 23 % (24-48) L Monocytes (%) (Auto) 7 % (0-9) Eosinophils (%) (Auto) 0 % (0-3) Basophils (%) (Auto) 1 % (0-3) Neutrophils # (Auto) 5.0 x10^3uL (1.8-7.7) Lymphocytes # (Auto) 1.7 x10^3/uL (1.0-4.8) Monocytes # (Auto) 0.5 x10^3/uL (0.0-1.1) Eosinophils # (Auto) 0.0 x10^3/uL (0.0-0.7) Basophils # (Auto) 0.1 x10^3/uL (0.0-0.2) Sodium Level 141 mmol/L (136-145) Potassium Level 3.6 mmol/L (3.5-5.1) Chloride Level 103 mmol/L (98-107) Carbon Dioxide Level 32 mmol/L (21-32) Anion Gap 6 (6-14) Blood Urea Nitrogen 34 mg/dL (7-20) H Creatinine 1.3 mg/dL (0.6-1.0) H Estimated GFR (Cockcroft-Gault) 39.5 BUN/Creatinine Ratio 26 (6-20) H Glucose Level 104 mg/dL (70-99) H Calcium Level 9.8 mg/dL (8.5-10.1) Total Bilirubin 0.5 mg/dL (0.2-1.0) Aspartate Amino Transferase (AST) 32 U/L (15-37) Alanine Aminotransferase (ALT) 28 U/L (14-59) Alkaline Phosphatase 94 U/L (46-116) Total Protein 7.8 g/dL (6.4-8.2) Albumin 3.7 g/dL (3.4-5.0) Albumin/Globulin Ratio 0.9 (1.0-1.7) L Laboratory Tests 08/01/18 17:30 Laboratory Tests 08/01/18 17:30 EKG EKG [] Radiology/Procedures Radiology/Procedures [] Course & Med Decision Making Course & Med Decision Making Pertinent Labs and Imaging studies reviewed. (See chart for details) [] Dragon Disclaimer Dragon Disclaimer This electronic medical record was generated, in whole or in part, using a voice recognition dictation system. Departure Departure Impression: Primary Impression: Generalized weakness Additional Impressions: Fall Left leg weakness Paresthesia of left leg Disposition: ADMITTED INPATIENT Admitting Physician: Tuan Moran Condition: STABLE Referrals: TUAN MORAN MD (PCP) Problem Qualifiers Additional Impressions: Fall Encounter type: initial encounter Qualified Codes: W19.XXXA - Unspecified fall, initial encounter DONNY LOMAX DO Aug 01, 2018 17:22
[2018-08-01 17:39] LABS: BASO # 0.1 x10^3/uL (0.0-0.2); BASO % 1 % (0-3); EOS % 0 % (0-3); HEMATOCRIT 35.7 % (36.0-47.0); HEMOGLOBIN 11.8 g/dL (12.0-15.5); LYMPH # 1.7 x10^3/uL (1.0-4.8); LYMPH % 23 % (24-48); MEAN CORPUSCULAR HEMOGLOBIN 30 pg (25-35); MEAN CORPUSCULAR HGB CONC 33 g/dL (31-37); MEAN CORPUSCULAR VOLUME 90 fL (79-100); MONO # 0.5 x10^3/uL (0.0-1.1); MONO % 7 % (0-9); NEUT % 69 % (31-73); PLATELET COUNT 259 x10^3/uL (140-400); RED BLOOD COUNT 3.94 x10^6/uL (3.50-5.40); RED CELL DISTRIBUTION WIDTH 14.4 % (11.5-14.5); WHITE BLOOD COUNT 7.3 x10^3/uL (4.0-11.0)
[2018-08-01] MEDS ORDERED: ACETAMINOPHEN 325 MG TABLET. PO PRN (17:45)
[2018-08-01] MEDS ORDERED: ONDANSETRON PF 4 MG/2 ML VIAL. IV PRN (17:45)
[2018-08-01 17:50] LABS: CALCIUM 9.8 mg/dL (8.5-10.1); CREATININE 1.3 mg/dL (0.6-1.0); GFR 39.5; POTASSIUM 3.6 mmol/L (3.5-5.1)
[2018-08-01 17:58] LABS: BILIRUBIN,URINE NEGATIVE (NEG); CLARITY,URINE CLEAR; COLOR,URINE YELLOW; NITRITE,URINE NEGATIVE (NEG); PROTEIN,URINE 30 mg/dL (NEG-TRACE); UROBILINOGEN,URINE 0.2 mg/dL (0.2 mg/dL)
[2018-08-01 17:58] LABS: ALBUMIN 3.7 g/dL (3.4-5.0); ALBUMIN/GLOBULIN RATIO 0.9 (1.0-1.7); TOTAL BILIRUBIN 0.5 mg/dL (0.2-1.0); TOTAL PROTEIN 7.8 g/dL (6.4-8.2)
[2018-08-01 18:05] LABS: HYALINE CASTS, URINE FEW /HPF
[2018-08-01 18:15] LABS: RBC,URINE 0 /HPF (0-2)
[2018-08-01 18:16] LABS: AMORPHOUS SEDIMENT,UR PRESENT /HPF; BACTERIA,URINE FEW /HPF (0-FEW)
[2018-08-01] MEDS: GABAPENTIN 100 MG CAPSULE. PO SCH (20:56)
[2018-08-01] MEDS: ATORVASTATIN CALCIUM 40 MG TABLET. PO SCH (20:56)
[2018-08-01] MEDS: POTASSIUM CHLORIDE 10 MEQ TABLET.ER. PO SCH (20:56)
[2018-08-01 23:00] VITALS: BP 154/74
[2018-08-02 03:00] VITALS: BP 134/61
[2018-08-02] MEDS: LEVOTHYROXINE 25 MCG TABLET. PO SCH (06:07)
[2018-08-02 07:00] VITALS: BP 148/62
--- NOTE | 2018-08-02 08:36 | PDOC ---
Provider Note Provider Note [id number] LUZMA MELO MD Aug 02, 2018 08:36
--- NOTE | 2018-08-02 08:54 | SSS ---
ADMIT DATE: 08/01/2018 23-HOUR NOTE HOSPITAL SUMMARY: A 78-year-old female who came to the ER with some numbness in the left lower leg for about 4 to 6 hours duration. She has some chronic back pain felt to be due to lumbar spondylosis and did not really have weakness in the leg. Her numbness has improved overnight. She is not having pain and she denies weakness and prefers to be discharged and followed as an outpatient at this point. Laboratory study showed normal CBC, chemistry profile and urinalysis though the BUN was mildly elevated at 34. No imaging studies were done. FINAL DIAGNOSIS: Transient paresthesias to the left leg likely secondary to lumbar radiculopathy and spinal stenosis. OPERATIONS, PROCEDURES, COMPLICATIONS AND CONSULTATIONS: None. DISPOSITION: Continue all meds the same. Increase fluid intake to improve her prerenal status. Office followup as needed. PROGNOSIS: Guarded given advanced age. LUZMA MELO MD DR: SANG/ban JOB#: [id number] / [id number]
[2018-08-02] MEDS: SERTRALINE 50 MG TABLET. PO SCH (09:34)
[2018-08-02] MEDS: amLODIPine BESYLATE 5 MG TABLET PO SCH (09:35)
[2018-08-02] MEDS: POTASSIUM CHLORIDE 10 MEQ TABLET.ER. PO SCH ×2 (09:35→20:39)
[2018-08-02] MEDS: GABAPENTIN 100 MG CAPSULE. PO SCH ×2 (09:39→20:39)
--- NOTE | 2018-08-02 10:48 | NUR ---
SW following for discharge planning. Discussed with RN, pt is from home alone. Dr. Moran discharging pt today home with self care. RN advised no SW needs.
[2018-08-02 11:00] VITALS: BP_SYST 156
[2018-08-02 15:00] VITALS: BP 151/72
[2018-08-02 19:00] VITALS: BP 169/76
[2018-08-02] MEDS: ATORVASTATIN CALCIUM 40 MG TABLET. PO SCH (20:39)
[2018-08-02] MEDS: ACETAMINOPHEN 500 MG TABLET PO PRN (20:54)
[2018-08-02] MEDS ORDERED: ACETAMINOPHEN 500 MG TABLET PO PRN (21:00)
[2018-08-02 23:00] VITALS: BP 183/81
[2018-08-03 03:00] VITALS: BP 188/80
[2018-08-03] MEDS: ACETAMINOPHEN 500 MG TABLET PO PRN (06:34)
[2018-08-03] MEDS: LEVOTHYROXINE 25 MCG TABLET. PO SCH (06:34)
[2018-08-03 07:00] VITALS: BP 167/70
--- NOTE | 2018-08-03 08:04 | PDOC ---
Provider Note Provider Note family has requested placement as she is no longer able to stay alone- meds same, no new plans LUZMA MELO MD Aug 03, 2018 08:03
[2018-08-03 11:00] VITALS: BP 184/89
[2018-08-03] MEDS: POTASSIUM CHLORIDE 10 MEQ TABLET.ER. PO SCH ×2 (11:27→20:58)
[2018-08-03] MEDS: GABAPENTIN 100 MG CAPSULE. PO SCH ×2 (11:28→20:57)
[2018-08-03] MEDS: SERTRALINE 50 MG TABLET. PO SCH (11:28)
[2018-08-03] MEDS: amLODIPine BESYLATE 5 MG TABLET PO SCH (11:28)
--- NOTE | 2018-08-03 12:06 | NUR ---
MO following for discharge planning. Discussed with RN, PT/OT recommending SNU. MO spoke with pt's daughter in law, Monica. Monica reports pt cannot walk by herself or get up by herself. They would like pt to have 24 hour care, however can't afford to have this in home so would possibly be interested in LTC. Family would like MO Negrete to met with pt has she can apparently still make her own decisions. MO to confirm with [facility] if pt has any SNU days left. Addendum: 08/03/18 at 1507 by GARLAND HASSAN MO met with pt to discuss discharge planning. Initially pt was not wanting to go to rehab and is wanting to go home. Pt reported she is nervous about what might happen to her at a facility. Pt reports she has asked her daughter in law (Monica) to bring her purse and is worried her DIL has kept her money ($400). MO offered to make an APS report regarding the money, however pt declined as she wants to talk to her DIL first to make sure. Pt reported this has not happened before. MO encouraged pt to think about what is best for her in regard to her health and getting rehab, pt agreed rehab would be a good idea, however really wants to go home. Pt reported she will give rehab a try, and questioned how long it would be for - MO advised this would be determined during her time at rehab. Pt is agreeable to referral being sent to [facility]. MO awaiting an H&P to be able to send referral. [facility] advised pt has used 23 of her days and has 77 remaining. MO will continue to follow. RN notified. Addendum: 08/03/18 at 1547 by GARLAND HASSAN MO attempted to contact pt's family to discuss plan. MO left a voicemail requesting a call back. MO will continue to follow.
[2018-08-03 15:00] VITALS: BP 148/69
--- NOTE | 2018-08-03 17:51 | HP ---
ADMIT DATE: 08/01/2018 CHIEF COMPLAINT: Weakness and leg pain. HISTORY OF PRESENT ILLNESS: The patient is a recurring patient in the hospital with generalized weakness. She had numbness and tingling in the left leg that no longer feels that way and she is comfortable at this point. PAST MEDICAL HISTORY: Well documented with multiple medications in the chart. SOCIAL HISTORY: Lives at home with family and she is becoming difficulty to care for her 24 hours a day. REVIEW OF SYSTEMS: No other problems. OBJECTIVE: ENT: All normal. NECK: No masses or nodes. LUNGS: Clear. CARDIOVASCULAR: Regular rate. No murmur. BREASTS: Not examined. ABDOMEN: Soft, benign and nontender. EXTREMITIES: Good pedal and radial pulses. NEUROLOGIC: Physiologic, nonfocal. Gait not tested. Sensation and motor strength in both lower extremities appears to be normal. ASSESSMENT: Left leg numbness and tingling now gone away. She has ongoing general self-care deficits. PLAN: Admitted for social placement. LUZMA MELO MD DR: SANG/nts JOB#: [id number] / [id number]
[2018-08-03 19:00] VITALS: BP 159/86
[2018-08-03] MEDS: ATORVASTATIN CALCIUM 40 MG TABLET. PO SCH (20:56)
[2018-08-03 23:00] VITALS: BP 176/102
[2018-08-04 03:00] VITALS: BP 158/95
[2018-08-04] MEDS: LEVOTHYROXINE 25 MCG TABLET. PO SCH (06:30)
[2018-08-04 07:00] VITALS: BP 149/90
[2018-08-04] MEDS: SERTRALINE 50 MG TABLET. PO SCH (08:10)
[2018-08-04] MEDS: GABAPENTIN 100 MG CAPSULE. PO SCH ×2 (08:11→20:35)
[2018-08-04] MEDS: amLODIPine BESYLATE 5 MG TABLET PO SCH (08:11)
[2018-08-04] MEDS: POTASSIUM CHLORIDE 10 MEQ TABLET.ER. PO SCH ×2 (08:11→20:36)
--- NOTE | 2018-08-04 10:51 | PDOC ---
Provider Note Provider Note no new problems, placement pending- sleeping now LUZMA MELO MD Aug 04, 2018 10:51
[2018-08-04 11:00] VITALS: BP 157/103
--- NOTE | 2018-08-04 14:02 | NUR ---
Patient has been lethargic this shift. Spinning Supervisor just woke patient up and she was able to state her name, , and location, speech was slurred. Strength BUE/BLE equal and normal. Face symmetrical. Pupils PERRL. Vital signs: 195/92, pulse 83, 100% SpO2 on room air, T 97.5. Notified Dr. Moran, no new orders received, continue to monitor patient.
[2018-08-04 15:00] VITALS: BP 103/56
[2018-08-04] MEDS: ACETAMINOPHEN 500 MG TABLET PO PRN (16:01)
[2018-08-04] MEDS: GABAPENTIN 300 MG CAPSULE. PO PRN (16:48)
[2018-08-04 19:50] VITALS: BP 142/78
[2018-08-04] MEDS: ATORVASTATIN CALCIUM 40 MG TABLET. PO SCH (20:35)
[2018-08-04 23:43] VITALS: BP 158/78
[2018-08-05] VITALS (7 sets, daily range): BP systolic 122–187; BP diastolic 61–86
[2018-08-05] MEDS: LEVOTHYROXINE 25 MCG TABLET. PO SCH ×2 (05:50→05:54)
[2018-08-05] MEDS: GABAPENTIN 100 MG CAPSULE. PO SCH ×2 (07:59→20:53)
[2018-08-05] MEDS: POTASSIUM CHLORIDE 10 MEQ TABLET.ER. PO SCH ×2 (07:59→20:53)
[2018-08-05] MEDS: SERTRALINE 50 MG TABLET. PO SCH (07:59)
[2018-08-05] MEDS: amLODIPine BESYLATE 5 MG TABLET PO SCH (08:00)
--- NOTE | 2018-08-05 09:39 | PDOC ---
Provider Note Provider Note sleeping, no new sxs, sleepy after abrahan re nerve pain L leg from lumbar- placement pending, add low dose lisin re bp LUZMA MELO MD Aug 05, 2018 09:38
[2018-08-05] MEDS: hydroCHLOROthiazide 12.5 MG CAPSULE PO SCH (10:00)
[2018-08-05] MEDS: GABAPENTIN 300 MG CAPSULE. PO PRN (13:04)
[2018-08-05] MEDS: ATORVASTATIN CALCIUM 40 MG TABLET. PO SCH (20:53)
[2018-08-05] MEDS: ACETAMINOPHEN 500 MG TABLET PO PRN (20:54)
[2018-08-06 03:00] VITALS: BP 146/89
[2018-08-06] MEDS: LEVOTHYROXINE 25 MCG TABLET. PO SCH (06:00)
[2018-08-06 07:00] VITALS: BP 164/91
--- NOTE | 2018-08-06 08:28 | PDOC ---
Provider Note Provider Note [id number] LUZMA MELO MD Aug 06, 2018 08:28
--- NOTE | 2018-08-06 08:50 | DS ---
DATE OF DISCHARGE: 08/06/2018 DATE OF DISCHARGE: 08/06/2018. HOSPITAL SUMMARY: A 78-year-old female admitted with some left leg pain, weakness that improved after admission. Her family then became aware that they were unable to provide adequate care for in the home and listed for at least short-term placement. CBC, chemistry profile, and urinalysis were all unremarkable as was the chest x-ray. She was monitored on the floor with no significant medical events and after senior living facility has been arranged, she will be followed as an outpatient. FINAL DIAGNOSES: 1. Chronic left leg radiculopathy. 2. Inability to provide self-care. OPERATIONS, PROCEDURES, COMPLICATIONS, AND CONSULTATIONS: None. DISPOSITION: All meds remain the same, placement at [facility] to my knowledge, unless otherwise arranged by social work coordinator. PROGNOSIS: Guarded. LUZMA MELO MD DR: SANG/ban JOB#: [id number] / [id number]
[2018-08-06] MEDS: GABAPENTIN 100 MG CAPSULE. PO SCH ×2 (10:07→20:45)
[2018-08-06] MEDS: amLODIPine BESYLATE 5 MG TABLET PO SCH (10:07)
[2018-08-06] MEDS: hydroCHLOROthiazide 12.5 MG CAPSULE PO SCH (10:08)
[2018-08-06] MEDS: SERTRALINE 50 MG TABLET. PO SCH (10:09)
[2018-08-06] MEDS: POTASSIUM CHLORIDE 10 MEQ TABLET.ER. PO SCH ×2 (10:09→20:45)
[2018-08-06 11:00] VITALS: BP 131/64
--- NOTE | 2018-08-06 12:57 | NUR ---
SW following for discharge planning. Discussed with RN, [facility] has accepted pt pending insurance auth. SW will continue to follow.
[2018-08-06] MEDS: ACETAMINOPHEN 500 MG TABLET PO PRN ×2 (13:08→20:45)
[2018-08-06 15:00] VITALS: BP 187/77
--- NOTE | 2018-08-06 16:10 | NUR ---
MO following pt. SW informed by Ivonne from [facility] has approved SNU. There is dc order on chart but Physician has not completed dc instruction for SNU or filled paper med rec. SW then received a phone call from Pt's daughter in law who reported they want pt to go [facility]. Daughter in law reported they had visited [facility] [facility] and they prefer [facility]. RN to fax clinicals to [facility]. At this time pt is unable to dc because there are no order from Physician and family is requesting a different facility. Physician will need to complete paper med rec or dc instruction in EMR for pt to dc tomorrow.
[2018-08-06 19:00] VITALS: BP 165/77
[2018-08-06] MEDS: ATORVASTATIN CALCIUM 40 MG TABLET. PO SCH (20:45)
[2018-08-06 23:00] VITALS: BP 171/89
[2018-08-07 03:00] VITALS: BP 161/82
[2018-08-07] MEDS: LEVOTHYROXINE 25 MCG TABLET. PO SCH (05:55)
[2018-08-07 07:00] VITALS: BP 134/66
[2018-08-07] MEDS: GABAPENTIN 100 MG CAPSULE. PO SCH (09:12)
[2018-08-07] MEDS: SERTRALINE 50 MG TABLET. PO SCH (09:12)
[2018-08-07] MEDS: POTASSIUM CHLORIDE 10 MEQ TABLET.ER. PO SCH (09:12)
[2018-08-07] MEDS: hydroCHLOROthiazide 12.5 MG CAPSULE PO SCH (09:13)
[2018-08-07] MEDS: amLODIPine BESYLATE 5 MG TABLET PO SCH (09:13)
[2018-08-07 11:00] VITALS: BP 122/60
--- NOTE | 2018-08-07 14:30 | NUR ---
SW following. Discussed with RN, family wanting pt to go to [facility]. SW met with pt, pt agreed to [facility]. Pt insurance approved for [facility]. [facility] will transport pt at 1730 today. RN notified. No further SW needs.
[2018-08-07 15:00] VITALS: BP 127/66
--- NOTE | 2018-08-07 19:27 | NUR ---
pt is discharged to [facility] at 1735 via transportation via wheelchair in stable condition. pt has all belongings with her. discharge packet given to transportation. attempted to give report at 1600 and 1638 but was unsuccessful d/t nurse being unavailable. gave report to Jones at 1735 at [facility] and he stated he had no further questions for me.
[2018-08-08] MEDS ORDERED: NON FORMULARY ITEM (Alendronate Sodium 1 TAB) PO SCH (09:00)
== END 2018-08-07 17:35 | DRG 552 ==
LOC: ER 16:00 → 4 NORTH 17:40
PROVIDERS: ADMIT Family Medicine; ATTEND Family Medicine
DX: M54.16 Radiculopathy, lumbar region (principal); M48.061 Spinal stenosis, lumbar region without neurogenic claudication; G30.9 Alzheimer's disease, unspecified; E78.00 Pure hypercholesterolemia, unspecified; E03.9 Hypothyroidism, unspecified; F02.80 Dementia in other diseases classified elsewhere, unspecified severity, without behavioral disturbance, psychotic disturbance, mood disturbance, and anxiety; G89.29 Other chronic pain; I10 Essential (primary) hypertension; Z90.710 Acquired absence of both cervix and uterus
CPT/HCPCS: 36415; 80053; 81001; 85025; 87493; 96374; J1100; 97116; 97530; 97535; 99285-25

== ENCOUNTER 2018-08-29 10:30 | Emergency (ER) | payer OTHER, MEDICAID ==
[~2018-08-29] VITALS: Ht 127 cm; Wt 37.6 kg
[2018-08-29 11:10] LABS: BILIRUBIN,URINE NEGATIVE (NEG); CLARITY,URINE CLEAR; COLOR,URINE YELLOW; NITRITE,URINE NEGATIVE (NEG); PH,URINE 7.5; PROTEIN,URINE NEGATIVE (NEG-TRACE); UROBILINOGEN,URINE 0.2 mg/dL (0.2 mg/dL)
[2018-08-29 11:26] LABS: AMORPHOUS SEDIMENT,UR PRESENT /HPF; BACTERIA,URINE 0 /HPF (0-FEW); RBC,URINE 0 /HPF (0-2); WBC,URINE 0 /HPF (0-4)
[2018-08-29 11:44] LABS: BASO % 1 % (0-3); EOS % 0 % (0-3); HEMATOCRIT 32.9 % (36.0-47.0); HEMOGLOBIN 11.2 g/dL (12.0-15.5); LYMPH # 1.6 x10^3/uL (1.0-4.8); LYMPH % 25 % (24-48); MEAN CORPUSCULAR HEMOGLOBIN 31 pg (25-35); MEAN CORPUSCULAR HGB CONC 34 g/dL (31-37); MEAN CORPUSCULAR VOLUME 91 fL (79-100); MONO # 0.4 x10^3/uL (0.0-1.1); MONO % 7 % (0-9); NEUT # 4.4 x10^3/uL (1.8-7.7); NEUT % 68 % (31-73); PLATELET COUNT 241 x10^3/uL (140-400); RED BLOOD COUNT 3.63 x10^6/uL (3.50-5.40); WHITE BLOOD COUNT 6.5 x10^3/uL (4.0-11.0)
[2018-08-29 11:53] LABS: PROTHROMBIN TIME PATIENT 13.5 SEC (11.7-14.0)
[2018-08-29] MEDS ORDERED: fentaNYL PF VIAL 100 MCG/2 ML VIAL IV ONE (12:00)
[2018-08-29 12:01] LABS: ALBUMIN 3.6 g/dL (3.4-5.0); ALBUMIN/GLOBULIN RATIO 0.9 (1.0-1.7); CALCIUM 9.4 mg/dL (8.5-10.1); CREATININE 0.9 mg/dL (0.6-1.0); GFR 60.4; TOTAL BILIRUBIN 0.5 mg/dL (0.2-1.0); TOTAL PROTEIN 7.6 g/dL (6.4-8.2)
[2018-08-29 12:02] LABS: POTASSIUM 2.9 mmol/L (3.5-5.1)
--- NOTE | 2018-08-29 12:07 | PHYS DOC ---
Past Medical History Past Medical History: Dementia, High Cholesterol, Hypertension, Hypothyroid Additional Past Medical Histor: prolapsed uterus, alzheimers, chronic back pain Past Surgical History: Hysterectomy, Other Additional Past Surgical Histo: lumbar spinal surgery Alcohol Use: None Drug Use: None Adult General Chief Complaint Chief Complaint: MULTIPLE COMPLAINTS [facility] HPI Patient is a 78 year old female who was brought here by EMS for evaluation of lower abdominal pain started about 3 or 4 days ago. Patient complaint of NO FEVER. Patient said her stool is a little darker than normal. Patient complaint weakness. Patient denies chest pain, no trouble breathing. Patient denies any urinary symptom. She also complaint of low back pain. Patient denies any bowel or bladder incontinence. Review of Systems Review of Systems Constitutional: Denies fever or chills [] Eyes: Denies change in visual acuity, redness, or eye pain [] HENT: Denies nasal congestion or sore throat [] Respiratory: Denies cough or shortness of breath [] Cardiovascular: No additional information not addressed in HPI [] GI: Positive for abdominal pain, NO nausea, vomiting, bloody stools or diarrhea [] : Denies dysuria or hematuria [] Musculoskeletal:Positive for lower back pain, no joint pain [] Integument: Denies rash or skin lesions [] Neurologic: Denies headache, focal weakness or sensory changes [] Endocrine: Denies polyuria or polydipsia [] All other systems were reviewed and found to be within normal limits, except as documented in this note. Current Medications Current Medications Current Medications Medications (Trade) Dose Ordered Sig/Ren Start Time Stop Time Status Last Admin Dose Admin Fentanyl Citrate (Fentanyl 2ml Vial) 25 mcg 1X ONCE 08/29/18 12:00 08/29/18 12:02 DC 08/29/18 12:17 25 MCG Info (CONTRAST GIVEN -- Rx MONITORING) 1 each PRN DAILY PRN 08/29/18 12:30 08/31/18 12:29 Iohexol (Omnipaque 300 Mg/ml) 75 ml 1X ONCE 08/29/18 12:15 08/29/18 12:16 DC 08/29/18 12:39 75 ML Allergies Allergies Allergies Coded Allergies Type Severity Reaction Last Updated Verified No Known Drug Allergies 09/17/14 No Physical Exam Physical Exam Constitutional: Well developed, well nourished, no acute distress, non-toxic appearance. [] HENT: Normocephalic, atraumatic, bilateral external ears normal, oropharynx moist, no oral exudates, nose normal. [] Eyes: PERRLA, EOMI, conjunctiva normal, no discharge. [] Neck: Normal range of motion, no tenderness, supple, no stridor. [] Cardiovascular:Heart rate regular rhythm, no murmur [] Lungs & Thorax: Bilateral breath sounds clear to auscultation [] Abdomen: Bowel sounds normal, soft, LLQ tenderness TO PALPATION, no masses, no pulsatile masses. [] Skin: Warm, dry, no erythema, no rash. [] Back: No tenderness, no CVA tenderness. [] Extremities: No tenderness, no cyanosis, no clubbing, ROM intact, no edema. [] Neurologic: Alert and oriented X 3, normal motor function, normal sensory function, no focal deficits noted. [] Psychologic: Affect normal, judgement normal, mood normal. [] Current Patient Data Vital Signs Vital Signs Date Time Temp Pulse Resp B/P (MAP) Pulse Ox O2 Delivery O2 Flow Rate FiO2 08/29/18 12:17 16 99 Room Air 08/29/18 10:30 97.8 82 181/82 (115) 97.8 Lab Values Laboratory Tests Test 08/29/18 10:50 08/29/18 11:25 Urine Collection Type U cath Urine Color Yellow Urine Clarity Clear Urine pH 7.5 Urine Specific Sixes 1.010 Urine Protein Negative mg/dL (NEG-TRACE) Urine Glucose (UA) Negative mg/dL (NEG) Urine Ketones (Stick) Negative mg/dL (NEG) Urine Blood Negative (NEG) Urine Nitrite Negative (NEG) Urine Bilirubin Negative (NEG) Urine Urobilinogen Dipstick 0.2 mg/dL (0.2 mg/dL) Urine Leukocyte Esterase Negative (NEG) Urine RBC 0 /HPF (0-2) Urine WBC 0 /HPF (0-4) Urine Amorphous Sediment Present /HPF Urine Bacteria 0 /HPF (0-FEW) White Blood Count 6.5 x10^3/uL (4.0-11.0) Red Blood Count 3.63 x10^6/uL (3.50-5.40) Hemoglobin 11.2 g/dL (12.0-15.5) L Hematocrit 32.9 % (36.0-47.0) L Mean Corpuscular Volume 91 fL (79-100) Mean Corpuscular Hemoglobin 31 pg (25-35) Mean Corpuscular Hemoglobin Concent 34 g/dL (31-37) Red Cell Distribution Width 14.0 % (11.5-14.5) Platelet Count 241 x10^3/uL (140-400) Neutrophils (%) (Auto) 68 % (31-73) Lymphocytes (%) (Auto) 25 % (24-48) Monocytes (%) (Auto) 7 % (0-9) Eosinophils (%) (Auto) 0 % (0-3) Basophils (%) (Auto) 1 % (0-3) Neutrophils # (Auto) 4.4 x10^3/uL (1.8-7.7) Lymphocytes # (Auto) 1.6 x10^3/uL (1.0-4.8) Monocytes # (Auto) 0.4 x10^3/uL (0.0-1.1) Eosinophils # (Auto) 0.0 x10^3/uL (0.0-0.7) Basophils # (Auto) 0.0 x10^3/uL (0.0-0.2) Prothrombin Time 13.5 SEC (11.7-14.0) Prothrombin Time INR 1.1 (0.8-1.1) PTT 30 SEC (24-38) Sodium Level 141 mmol/L (136-145) Potassium Level 2.9 mmol/L (3.5-5.1) *L Chloride Level 99 mmol/L (98-107) Carbon Dioxide Level 33 mmol/L (21-32) H Anion Gap 9 (6-14) Blood Urea Nitrogen 26 mg/dL (7-20) H Creatinine 0.9 mg/dL (0.6-1.0) Estimated GFR (Cockcroft-Gault) 60.4 BUN/Creatinine Ratio 29 (6-20) H Glucose Level 102 mg/dL (70-99) H Calcium Level 9.4 mg/dL (8.5-10.1) Total Bilirubin 0.5 mg/dL (0.2-1.0) Aspartate Amino Transferase (AST) 32 U/L (15-37) Alanine Aminotransferase (ALT) 25 U/L (14-59) Alkaline Phosphatase 97 U/L (46-116) Total Protein 7.6 g/dL (6.4-8.2) Albumin 3.6 g/dL (3.4-5.0) Albumin/Globulin Ratio 0.9 (1.0-1.7) L Lipase 86 U/L (73-393) Laboratory Tests 08/29/18 11:25 Laboratory Tests 08/29/18 11:25 EKG EKG [] Radiology/Procedures Radiology/Procedures [][facility] [address] [place] [address] IMAGING REPORT Signed PATIENT: ANDREZ CHAU ACCOUNT: [id number] : 1940 LOCATION: ER AGE: 78 SEX: F EXAM STATUS: REG ER ORD. PHYSICIAN: CAROLINE MARTINEZ DO REASON: LEFT LOWER ABDOMINAL PAIN FOR A FEW DAY PROCEDURE: CT ABD PELV W/ IV CONTRST ONLY PQRS Compliance statement: One or more of the following individualized dose reduction techniques were utilized for this examination: 1. Automated exposure control. 2. Adjustment of the mA and/or kV according to patient size. 3. Use of iterative reconstruction technique. Indication:Left lower abdominal pain for a few days. TECHNIQUE: CT abdomen and pelvis with IV contrast with multiplanar reformats. COMPARISON: Previous exam from 11/19/2017. FINDINGS: Heart is normal in size. No pericardial or pleural effusion. Clear lung bases. No focal liver lesion. Multiple calcified adenomas in the spleen. No radiopaque gallstone. Pancreas is within normal limits. No adrenal nodules. Simple appearing cyst in the left kidney measuring 1 cm. No nephrolithiasis or hydronephrosis. No free pelvic fluid or ascites. No enlarged pelvic or retroperitoneal adenopathy. Scattered moderate atherosclerotic plaque in the aorta and bilateral iliac arteries. Status post hysterectomy. No bowel obstruction. Normal appendix. Urinary bladder is within normal limits. Left adnexal low attenuating lesion measuring 2.7 x 1.5 cm most likely a cyst. Moderate levoscoliosis of the lumbar spine with multilevel advanced degenerative disc disease. Interval progression of previously seen T12 compression deformity with no retropulsion the spinal canal. IMPRESSION: 1. No bowel obstruction. 2. No nephrolithiasis or hydronephrosis. 3. Worsening of previous is seen in T12 compression deformity with no retropulsion the spinal canal. Advanced multilevel degenerative disc disease in the lumbar spine. Electronically signed by: Zion Reis DO (08/29/2018 12:49 PM) [facility] DICTATED and SIGNED BY: ZION REIS DO DATE: 08/29/18 1249 Course & Med Decision Making Course & Med Decision Making Pertinent Labs and Imaging studies reviewed. (See chart for details) [] Dragon Disclaimer Dragon Disclaimer This electronic medical record was generated, in whole or in part, using a voice recognition dictation system. Departure Departure Impression: Primary Impression: Abdominal pain Additional Impression: Acute exacerbation of chronic low back pain Disposition: 01 HOME, SELF-CARE Condition: STABLE Referrals: LUZMA MELO MD (PCP) follow up with your doctor next week for reevaluation. Patient Instructions: Abdominal Pain, Back Pain, Adult Problem Qualifiers CAROLINE MARTINEZ DO Aug 29, 2018 12:07
[2018-08-29] MEDS ORDERED: IOHEXOL 300 MG/ML 100ML VIAL. IV ONE (12:15)
[2018-08-29] MEDS ORDERED: CONTRAST GIVEN. MC PRN (12:30)
--- NOTE | 2018-08-29 12:43 | NUR ---
Pt requesting to use bed barbour. Call light within reach of pt. Pt advised to use call light to notify staff when pt is ready to be taken off the bed barbour.
--- NOTE | 2018-08-29 12:49 | NUR ---
Pt taken off bed barbour and cleaned up. Call light within reach of pt who has been advised to call staff if she needs anything else.
--- NOTE | 2018-08-29 12:53 | RAD ---
PQRS Compliance statement: One or more of the following individualized dose reduction techniques were utilized for this examination: 1. Automated exposure control. 2. Adjustment of the mA and/or kV according to patient size. 3. Use of iterative reconstruction technique. Indication:Left lower abdominal pain for a few days. TECHNIQUE: CT abdomen and pelvis with IV contrast with multiplanar reformats. COMPARISON: Previous exam from 11/19/2017. FINDINGS: Heart is normal in size. No pericardial or pleural effusion. Clear lung bases. No focal liver lesion. Multiple calcified adenomas in the spleen. No radiopaque gallstone. Pancreas is within normal limits. No adrenal nodules. Simple appearing cyst in the left kidney measuring 1 cm. No nephrolithiasis or hydronephrosis. No free pelvic fluid or ascites. No enlarged pelvic or retroperitoneal adenopathy. Scattered moderate atherosclerotic plaque in the aorta and bilateral iliac arteries. Status post hysterectomy. No bowel obstruction. Normal appendix. Urinary bladder is within normal limits. Left adnexal low attenuating lesion measuring 2.7 x 1.5 cm most likely a cyst. Moderate levoscoliosis of the lumbar spine with multilevel advanced degenerative disc disease. Interval progression of previously seen T12 compression deformity with no retropulsion the spinal canal. IMPRESSION: 1. No bowel obstruction. 2. No nephrolithiasis or hydronephrosis. 3. Worsening of previous is seen in T12 compression deformity with no retropulsion the spinal canal. Advanced multilevel degenerative disc disease in the lumbar spine. Electronically signed by: Zion Reis DO (08/29/2018 12:49 PM) [facility]
--- NOTE | 2018-08-29 12:57 | NUR ---
Pt using bed barbour. Devonte RYAN assisting this tech with placing patient on bed barbour. call light within reach of pt.
[2018-08-29 14:00] VITALS: BP 183/84
[2018-08-29] MEDS ORDERED: POTASSIUM CHLORIDE 20 MEQ TABLET.ER. PO ONE ×2 (14:30)
== END 2018-08-29 14:41 | disposition home or self-care (01) ==
LOC: ER 10:30
DX: R10.32 Left lower quadrant pain (principal); G89.29 Other chronic pain; M54.5 Low back pain; R53.1 Weakness; E78.00 Pure hypercholesterolemia, unspecified; I10 Essential (primary) hypertension; E03.9 Hypothyroidism, unspecified; G30.9 Alzheimer's disease, unspecified; F02.80 Dementia in other diseases classified elsewhere, unspecified severity, without behavioral disturbance, psychotic disturbance, mood disturbance, and anxiety; Z98.890 Other specified postprocedural states; Z90.710 Acquired absence of both cervix and uterus
CPT/HCPCS: 36415; 74177; 80053; 81001; 83690; 85025; 85610; 85730; 86850; 86900; 86901; 96374; 99285; J3010; Q9967

== ENCOUNTER 2018-09-23 20:07 | Emergency (ER) | payer OTHER, MEDICAID ==
[~2018-09-23] VITALS: Ht 134.6 cm; Wt 37.6 kg
--- NOTE | 2018-09-23 21:27 | PHYS DOC ---
Past Medical History Past Medical History: Dementia, High Cholesterol, Hypertension, Hypothyroid Additional Past Medical Histor: prolapsed uterus, alzheimers, chronic back pain (FLORENTIN BARROS APRN) Past Surgical History: No Surgical History, Hysterectomy, Other Additional Past Surgical Histo: lumbar spinal surgery (FLORENTIN BARROS APRN) Alcohol Use: None Drug Use: None (FLORENTIN BARROS APRN) Adult General Chief Complaint Chief Complaint: MECHANICAL FALL [facility] HPI Patient is a 78 year old female who was brought to the emergency department by EMS for a fall. Patient was standing when she slipped and fell forward onto her knees. She denies any pain at this time. Patient had reported that she was having bilateral knee pain to EMS. Patient is extending and flexing both of her knees at this time without any difficulty and she denies any pain with movement. ROS Patient denies any fever, nausea, vomiting, headache, dizziness, chest pain, shortness of breath, or back pain. Any numbness, tingling, or weakness of her lower extremities. Patient states she slipped and fell. All other ROS is neg unless otherwise noted in HPI. (FLORENTIN BARROS APRN) Review of Systems Review of Systems See Above (FLORENTIN BARROS APRN) Allergies Allergies Allergies Coded Allergies Type Severity Reaction Last Updated Verified No Known Drug Allergies 09/17/14 No (LEVI OLIVARES DO) Physical Exam Physical Exam See Above Constitutional: Well developed, well nourished, no acute distress, non-toxic appearance. [] HENT: Normocephalic, atraumatic, bilateral external ears normal, nose normal. [] Eyes: conjunctiva normal, no discharge. [] Neck: Normal range of motion, no tenderness, supple, no stridor. [] Cardiovascular:Heart rate regular rhythm Lungs & Thorax: Bilateral breath sounds clear to auscultation, no tenderness to palpation, no retractions [] Abdomen: soft, no tenderness, no masses, no pulsatile masses. [] Skin: Warm, dry, no erythema, no rash, no bruising, no abrasions. [] Back: No tenderness to palpation Extremities: No tenderness, no cyanosis, no clubbing, ROM intact, no edema. [] Neurologic: Alert and oriented X 3, no focal deficits noted. [] Psychologic: Affect normal, judgement normal, mood normal. [] (FLORENTIN BARROS APRN) Current Patient Data Vital Signs Vital Signs Date Time Temp Pulse Resp B/P (MAP) Pulse Ox O2 Delivery O2 Flow Rate FiO2 09/23/18 22:40 88 15 99 09/23/18 20:15 98.9 177/80 (112) Room Air 98.9 (LEVI OLIVARES DO) Lab Values Laboratory Tests Test 09/23/18 20:58 Urine Collection Type Unknown Urine Color Yellow Urine Clarity Clear Urine pH 7.0 Urine Specific [place] 1.010 Urine Protein Negative mg/dL (NEG-TRACE) Urine Glucose (UA) Negative mg/dL (NEG) Urine Ketones (Stick) Negative mg/dL (NEG) Urine Blood Negative (NEG) Urine Nitrite Negative (NEG) Urine Bilirubin Negative (NEG) Urine Urobilinogen Dipstick 0.2 mg/dL (0.2 mg/dL) Urine Leukocyte Esterase Small (NEG) Urine RBC 0 /HPF (0-2) Urine WBC 5-10 /HPF (0-4) Urine Squamous Epithelial Cells Few /LPF Urine Bacteria Few /HPF (0-FEW) Urine Mucus Slight /LPF Microbiology 09/23/18 Urine Culture - Final, Complete 09/23/18 Urine Culture Result 1 (VIVIAN) - Final, Complete (LEVI OLIVARES DO) EKG EKG [] (FLORENTIN BARROS APRN) Radiology/Procedures Radiology/Procedures [] (FLORENTIN BARROS APRN) Course & Med Decision Making Course & Med Decision Making Pertinent Labs and Imaging studies reviewed. (See chart for details) dx: Fall without significant injury Physical exam was negative for any acute findings, bruising, redness, or tenderness. Patient denied any complaints with exam. Will have patient return to halfway, May take Tylenol or ibuprofen as needed for pain. Follow-up with your primary care doctor if symptoms persist, return to the ER if symptoms worsen. [] (FLORENTIN BARROS APRN) Dragon Disclaimer Dragon Disclaimer This electronic medical record was generated, in whole or in part, using a voice recognition dictation system. (FLORENTIN BARROS APRN) Departure Departure Impression: Primary Impression: Fall with no significant injury Disposition: 01 HOME, SELF-CARE Condition: STABLE Referrals: LUZMA MELO MD (PCP) Patient Instructions: Fall Prevention and Home Safety, [id number] Additional Instructions: Tylenol or ibuprofen as needed for pain. Follow up with your primary care doctor as needed. Return to the ER if your symptoms worsen. Attending Signature Attending Signature I have reviewed the PA/MOLD STACKER's note and plan of care. I was available for consultation as needed during the patient's visit in the emergency department. I agree with the clinical impression, plan, and disposition. (LEVI OLIVARES DO) Problem Qualifiers Primary Impression: Fall with no significant injury Encounter type: initial encounter Qualified Codes: W19.XXXA - Unspecified fall, initial encounter FLORENTIN BARROS APRN Sep 23, 2018 21:27 LEVI OLIVARES DO Sep 27, 2018 10:28
[2018-09-23 22:30] LABS: BILIRUBIN,URINE NEGATIVE (NEG); CLARITY,URINE CLEAR; COLOR,URINE YELLOW; NITRITE,URINE NEGATIVE (NEG); PROTEIN,URINE NEGATIVE (NEG-TRACE); UROBILINOGEN,URINE 0.2 mg/dL (0.2 mg/dL)
[2018-09-23 22:36] LABS: RBC,URINE 0 /HPF (0-2)
[2018-09-23 22:37] LABS: BACTERIA,URINE FEW /HPF (0-FEW); SQUAMOUS EPITHELIAL CELL,UR FEW /LPF
[2018-09-23 22:40] VITALS: BP 164/67
== END 2018-09-23 22:44 | disposition home or self-care (01) ==
LOC: ER 20:07
DX: M25.561 Pain in right knee (principal); M25.562 Pain in left knee; E78.00 Pure hypercholesterolemia, unspecified; I10 Essential (primary) hypertension; E03.9 Hypothyroidism, unspecified; G89.29 Other chronic pain; Z90.710 Acquired absence of both cervix and uterus; W01.0XXA Fall on same level from slipping, tripping and stumbling without subsequent striking against object, initial encounter; Y93.89 Activity, other specified; Y92.89 Other specified places as the place of occurrence of the external cause; Y99.8 Other external cause status
CPT/HCPCS: 81001; 87086; 99284